=== PATIENT | female | born 1975 | race Caucasian/White ===

== ENCOUNTER 2017-10-30 15:33 | Observation (INO) ==
--- NOTE | 2017-10-30 16:28 | Emergency Department Note ---
Disposition Clinical Impression: Vaginal bleeding Anemia Qualifiers: Anemia type: unspecified type Qualified Code(s): D64.9 - Anemia, unspecified Disposition: Still a Patient Condition: Good Instructions: Anemia (ED) Reasons to Return/Additional Instructions: Follow-up with MUSIC THERAPY SPECIALIST as scheduled on November 09. Return sooner to the ER for any new or worsening symptoms such as worsening bleeding, fatigue, shortness of breath. Referrals: Abrahma Pelletier DO [Primary Care Provider] - Forms: ED Satisfaction Letter Time of Disposition: 18:43 Recheck wound or abnormal lab - General Chief Complaint: ED Recheck/Abnormal Lab/Rx Stated Complaint: abnormal lab Time Seen by Provider: 10/30/17 16:07 Source: patient Mode of arrival: ambulatory Limitations: no limitations Nursing Notes Reviewed: Yes Vital Signs Reviewed: Yes - History of Present Illness HPI Narrative: Patient is a 42-year-old female with past medical history of diabetes, hirsutism , blood clots of the lower extremities and currently on Eliquis. She presents today due to vaginal bleeding, concern for low hemoglobin level. She states that she has had significant vaginal bleeding over the past 2 weeks, has went to a total of 7 packages of pads. She states the bleeding was very heavy the first week and a half and has now slowed down to about 2 pads per day. She followed up with her MUSIC THERAPY SPECIALIST yesterday, Dr. Martinez, who evaluated her for further vaginal bleeding. He plans to do an endometrial biopsy on November 09. Patient was not placed on any hormone therapy. The patient herself says that she has been very fatigued, short of breath when exerting herself. She denies any other fevers, chest pain, abdominal pain, diarrhea, dysuria, hematuria. She denies any history of anemia. She states that she had her blood level drawn today and that it was low and she was told to come to the ER. - Related Data Home Medications Medication Instructions Recorded Confirmed Albuterol Sulfate [Proair Hfa] 2 puff IH Q6H 02/01/17 10/28/17 Aspirin Enteric Coated [Aspirin EC] 81 mg PO DAILY 02/01/17 10/28/17 Losartan Potassium [Cozaar] 100 mg PO DAILY 02/01/17 10/28/17 Pantoprazole Sodium [Protonix] 40 mg PO BID 02/01/17 10/28/17 Albuterol Neb [Proventil Neb] 2.5 mg IH TID 07/09/17 10/28/17 Beclomethasone Diprop 80mcg [Qvar 2 puff IH BID 07/09/17 10/28/17 80 mcg] Calcium Carb, Citrate/Vit D3 1 tab PO DAILY 07/09/17 10/28/17 [Calcium + D3 ER Tablet] Furosemide [Lasix] 20 mg PO DAILY 07/09/17 10/28/17 Previous Rx's Medication Instructions Recorded Ferrous Sulfate [Iron] 325 mg PO BID #60 tablet 08/12/17 Apixaban [Eliquis] 5 mg PO BID #60 tablet 10/28/17 Allergies Allergy/AdvReac Type Severity Reaction Status Date / Time Amoxicillin Allergy Mild swelling Verified 08/10/17 10:31 naproxen Allergy Mild cold sweats Verified 08/10/17 10:31 orphenadrine Allergy Mild severe Verified 08/10/17 10:31 headache Oxycodone [From Percocet] Allergy Mild Hives Verified 08/10/17 10:31 ranitidine Allergy Mild GI bleeding Verified 08/10/17 10:31 sertraline [From Zoloft] Allergy Mild rash, Verified 08/10/17 10:31 sweating codeine Allergy Hives Verified 08/10/17 10:31 hydrocodone Allergy Hives Verified 08/10/17 10:31 Sulfa (Sulfonamide Allergy Hives Verified 08/10/17 10:31 Antibiotics) All systems ED: reviewed and negative except as stated. Constitutional: Denies: fever Cardiovascular: Denies: chest pain Respiratory: Denies: cough, dyspnea, wheezes Gastrointestinal: Denies: abdominal pain, nausea, vomiting Past Medical History - Past Medical History Attestation: Yes The following information was validated with the patient. Source: patient Medical history: Reports: asthma, diabetes, hypertension Surgical history: Reports: cholecystectomy, orthopedic, other, other Psychiatric history: Reports: no psych history MUSIC THERAPY SPECIALIST history: Reports: no MUSIC THERAPY SPECIALIST history - Social History Smoking Status: Never smoker Smokeless Tobacco Status: No Alcohol use: Reports: none Drug use: Reports: none Physical Exam - General Limitations: no limitations General appearance: alert, in no apparent distress - Head Head exam: atraumatic, normocephalic, normal inspection - Eye Eye exam: Present: PERRL, EOMI, other (Conjunctival pallor) - ENT ENT exam: normal exam, normal oropharynx, mucous membranes moist - Neck Neck exam: Present: normal inspection, full ROM, trachea midline - Chest Chest inspection: Present: normal inspection, symmetric chest wall rise - Respiratory Respiratory exam: Present: normal lung sounds bilaterally - Cardiovascular Cardiovascular exam: Present: normal rhythm, tachycardia, normal heart sounds - Abdominal Exam Abdominal exam: Present: soft, Non-Tender. Absent: tenderness, distention, guarding, rebound, rigidity - Female External Exam: Present: pt deferred Speculum Exam: Present: Pt Deferred Bimanual Exam: Present: Pt Deferred - Extremities Exam Extremities exam: Present: normal inspection, full ROM. Absent: tenderness, pedal edema - Neurological Exam Neurological exam: Present: alert, oriented X3 - Psychiatric Psychiatric exam: Present: normal affect, normal mood - Skin Skin exam: Present: warm, dry, intact, pallor. Absent: cyanosis Course Vital Signs Temperature 98.2 F 10/30/17 15:37 Pulse Rate 106 10/30/17 15:37 Respiratory Rate 18 10/30/17 15:37 Blood Pressure 135/84 10/30/17 15:37 O2 Sat by Pulse Oximetry 98 10/30/17 15:37 Temperature 98.8 F 10/30/17 18:10 Pulse Rate 89 10/30/17 18:10 Respiratory Rate 18 10/30/17 18:10 Blood Pressure 116/67 10/30/17 18:10 O2 Sat by Pulse Oximetry 98 10/30/17 18:10 Oxygen Delivery Oxygen Delivery Room Air Recheck wound or abnormal lab - MDM Narrative Medical decision making narrative: Patient was tachycardic on presentation, otherwise blood pressure stable. Vaginal bleeding has slowed down to about 2 pads a day. Should he has established follow-up with endometrial biopsy on November 09. I called and talked with MUSIC THERAPY SPECIALIST equipment operation instructor, Fidelia Concepcion, she states that she is familiar with the patient and the patient was seen yesterday. She did not have any other recommendations on any other intervention such as hormone therapy. She states that patient was told to discuss her Eliquis with primary care physician and possibly stopping or switching medication due to vaginal bleeding. She did confirm the patient has follow-up endometrial biopsy. She did not feel that patient needs to be seen by MUSIC THERAPY SPECIALIST at this time. Repeat hemoglobin here less than 7. Patient will be ordered to titrate blood cell and transfuse. Patient will be observed here in the ER and then likely sent home after transfusion to follow up with OBGYN as scheduled. Will sign out to Dr. Monterroso and Dr. Pennington for further care. - Medical Records Medical records reviewed: Yes I reviewed the patient's medical records. - Lab Data Lab results reviewed: Yes I reviewed the patient's lab results. Result diagrams: 10/30/17 16:41 Lab Results 10/30/17 10/30/17 10/30/17 Range/Units 16:41 16:41 16:41 WBC 8.5 (4.3-11.1) K/mcL RBC 2.35 L (3.82-4.97) M/mcL Hgb 6.3 L (11.5-15.4) g/dL Hct 19.9 L (35.3-44.9) % MCV 84.7 (83.0-100.0) fL MCH 26.8 L (28.0-33.3) pg MCHC 31.7 (31.6-35.5) g/dL RDW 16.4 H (11.5-14.5) % Plt Count 195 (140-400) K/mcL MPV 10.1 (9.4-12.4) fL Serum , Qual Negative (Negative) Blood Type O POSITIVE Antibody Screen NEGATIVE Crossmatch See Detail S.B.A.R. - S.B.A.R. Situation: Demographics, MOA Background: Presenting Complaint, Relevant PMH, Meds, & Allergies Assessment: Vital Signs, Course and respsone to treatment, Exam Concerns, Patient/Family Expectation, Pertinant Lab Results Recommendation: Barrier(s) to disposition, Recommendation based on pending studies, treatments, or consults S.B.A.R. Report Given to: Dr. Pennington
[2017-10-30 16:53] LABS: Hematocrit 19.9 % (35.3-44.9); Hemoglobin 6.3 g/dL (11.5-15.4); Mean Corpuscular HGB Conc 31.7 g/dL (31.6-35.5); Mean Corpuscular Hemoglobin 26.8 pg (28.0-33.3); Mean Corpuscular Volume 84.7 fL (83.0-100.0); Mean Platelet Volume 10.1 fL (9.4-12.4); Platelet Count 195 K/mcL (140-400); Red Blood Count 2.35 M/mcL (3.82-4.97); Red Cell Distribution Width 16.4 % (11.5-14.5)
--- NOTE | 2017-10-30 17:23 | Emergency Department Note ---
Disposition Clinical Impression: Anemia, Vaginal bleeding Disposition: Admitted As Inpatient Condition: Good Referrals: Abraham Pelletier DO [Primary Care Provider] - Forms: ED Satisfaction Letter General Adult HPI - General Chief complaint: ED Recheck/Abnormal Lab/Rx Stated complaint: abnormal lab Time Seen by Provider: 10/30/17 16:07 Source: patient Mode of arrival: ambulatory Limitations: no limitations - History of Present Illness Pain Scale: 0 - Related Data Home Medications Medication Instructions Recorded Confirmed Albuterol Sulfate [Proair Hfa] 2 puff IH Q6H 02/01/17 10/28/17 Aspirin Enteric Coated [Aspirin EC] 81 mg PO DAILY 02/01/17 10/28/17 Losartan Potassium [Cozaar] 100 mg PO DAILY 02/01/17 10/28/17 Pantoprazole Sodium [Protonix] 40 mg PO BID 02/01/17 10/28/17 Albuterol Neb [Proventil Neb] 2.5 mg IH TID 07/09/17 10/28/17 Beclomethasone Diprop 80mcg [Qvar 2 puff IH BID 07/09/17 10/28/17 80 mcg] Calcium Carb, Citrate/Vit D3 1 tab PO DAILY 07/09/17 10/28/17 [Calcium + D3 ER Tablet] Furosemide [Lasix] 20 mg PO DAILY 07/09/17 10/28/17 Previous Rx's Medication Instructions Recorded Ferrous Sulfate [Iron] 325 mg PO BID #60 tablet 08/12/17 Apixaban [Eliquis] 5 mg PO BID #60 tablet 10/28/17 Allergies Allergy/AdvReac Type Severity Reaction Status Date / Time Amoxicillin Allergy Mild swelling Verified 08/10/17 10:31 naproxen Allergy Mild cold sweats Verified 08/10/17 10:31 orphenadrine Allergy Mild severe Verified 08/10/17 10:31 headache Oxycodone [From Percocet] Allergy Mild Hives Verified 08/10/17 10:31 ranitidine Allergy Mild GI bleeding Verified 08/10/17 10:31 sertraline [From Zoloft] Allergy Mild rash, Verified 08/10/17 10:31 sweating codeine Allergy Hives Verified 08/10/17 10:31 hydrocodone Allergy Hives Verified 08/10/17 10:31 Sulfa (Sulfonamide Allergy Hives Verified 08/10/17 10:31 Antibiotics) Past Medical History - Past Medical History Medical history: Reports: asthma, diabetes, hypertension Surgical history: Reports: cholecystectomy, orthopedic, other, other Psychiatric history: Reports: no psych history CONTROLLER REPAIRER AND TESTER history: Reports: no CONTROLLER REPAIRER AND TESTER history - Social History Smoking Status: Never smoker Smokeless Tobacco Status: No Alcohol use: Reports: none Drug use: Reports: none Physical Exam - General Limitations: no limitations General appearance: alert, in no apparent distress Course Vital Signs Temperature 98.2 F 10/30/17 15:37 Pulse Rate 106 10/30/17 15:37 Respiratory Rate 18 10/30/17 15:37 Blood Pressure 135/84 10/30/17 15:37 O2 Sat by Pulse Oximetry 98 10/30/17 15:37 Temperature 98.2 F 10/30/17 16:05 Pulse Rate 106 10/30/17 16:05 Respiratory Rate 18 10/30/17 16:05 Blood Pressure 135/84 10/30/17 16:05 O2 Sat by Pulse Oximetry 98 10/30/17 16:05 Oxygen Delivery Oxygen Delivery Room Air Medical Decision Making - Lab Data Result diagrams: 10/30/17 16:41 Lab Results 10/30/17 Range/Units 16:41 WBC 8.5 (4.3-11.1) K/mcL RBC 2.35 L (3.82-4.97) M/mcL Hgb 6.3 L (11.5-15.4) g/dL Hct 19.9 L (35.3-44.9) % MCV 84.7 (83.0-100.0) fL MCH 26.8 L (28.0-33.3) pg MCHC 31.7 (31.6-35.5) g/dL RDW 16.4 H (11.5-14.5) % Plt Count 195 (140-400) K/mcL MPV 10.1 (9.4-12.4) fL Attestation Statement - Attestation Attestation: I examined this patient and my medical decision-making was reviewed with the VISUAL MERCHANDISING MANAGER/PA/Advanced Practice Nurse/Resident Physician. I agree with the documented findings, disposition and treatment plan as described except to the extent set forth below. The patient presents with vaginal bleeding which has been going on for the last week and she has a low hemoglobin and she does have a pale appearance. She is here with her mother. The patient is not sexually active and does not have any children. She did have a ultrasound by gynecology yesterday and they are negative do a biopsy on November 09 and his general from the office. She will be transfused 2 units here and be sent home. She currently is bleeding 2 pads per day so with her continued use of iron this should be adequate to improve the hemoglobin level and to prevent any problems but if her bleeding increases again she should return or call her beekeeper and the patient is bright and alert and except for being pale is well in appearance and demeanor .
[2017-10-30] MEDS ORDERED: 0.9 % Sodium Chloride 250 ML ONE (17:48)
[2017-10-30 19:54] LABS: BUN/Creatinine Ratio 11 (6-26); Blood Urea Nitrogen 11 mg/dL (6-20); Calcium 8.8 mg/dL (8.6-10.3); Carbon Dioxide 27 mEq/L (23-29); Chloride 102 mEq/L (98-107); Glucose 114 mg/dL (70-105); Osmolality,Calculated 288 (280-300); Potassium 3.2 mEq/L (3.5-5.1); Sodium 139 mEq/L (136-145); eGFR For Non-African Americans > 60 (> 60)
[2017-10-30 19:56] LABS: Troponin I < 0.03 ng/mL (< 0.04)
[2017-10-30] MEDS ORDERED: Isovue-370 500 ML INFUS..BTL IV ONE (20:36)
--- NOTE | 2017-10-30 21:52 | Emergency Department Note ---
Disposition Clinical Impression: Anemia, Vaginal bleeding Disposition: Admitted As Inpatient Condition: Good Recheck wound or abnormal lab - General Chief Complaint: ED Recheck/Abnormal Lab/Rx Stated Complaint: abnormal lab Time Seen by Provider: 10/30/17 16:07 Source: patient Mode of arrival: ambulatory Limitations: no limitations - Related Data Home Medications Medication Instructions Recorded Confirmed Albuterol Sulfate [Proair Hfa] 2 puff IH Q6H 02/01/17 10/30/17 Aspirin Enteric Coated [Aspirin EC] 81 mg PO DAILY 02/01/17 10/30/17 Losartan Potassium [Cozaar] 100 mg PO DAILY 02/01/17 10/30/17 Pantoprazole Sodium [Protonix] 40 mg PO BID 02/01/17 10/30/17 Albuterol Neb [Proventil Neb] 2.5 mg IH TID 07/09/17 10/30/17 Beclomethasone Diprop 80mcg [Qvar 2 puff IH BID 07/09/17 10/30/17 80 mcg] Calcium Carb, Citrate/Vit D3 1 tab PO DAILY 07/09/17 10/30/17 [Calcium + D3 ER Tablet] Furosemide [Lasix] 20 mg PO DAILY 07/09/17 10/30/17 Previous Rx's Medication Instructions Recorded Ferrous Sulfate [Iron] 325 mg PO BID #60 tablet 08/12/17 Apixaban [Eliquis] 5 mg PO BID #60 tablet 10/28/17 Allergies Allergy/AdvReac Type Severity Reaction Status Date / Time Amoxicillin Allergy Mild swelling Verified 08/10/17 10:31 naproxen Allergy Mild cold sweats Verified 08/10/17 10:31 orphenadrine Allergy Mild severe Verified 08/10/17 10:31 headache Oxycodone [From Percocet] Allergy Mild Hives Verified 08/10/17 10:31 ranitidine Allergy Mild GI bleeding Verified 08/10/17 10:31 sertraline [From Zoloft] Allergy Mild rash, Verified 08/10/17 10:31 sweating codeine Allergy Hives Verified 08/10/17 10:31 hydrocodone Allergy Hives Verified 08/10/17 10:31 Sulfa (Sulfonamide Allergy Hives Verified 08/10/17 10:31 Antibiotics) Constitutional: Denies: fever Cardiovascular: Denies: chest pain Respiratory: Denies: cough, dyspnea, wheezes Gastrointestinal: Denies: abdominal pain, nausea, vomiting Past Medical History - Past Medical History Medical history: Reports: asthma, diabetes, hypertension Surgical history: Reports: cholecystectomy, orthopedic, other, other Psychiatric history: Reports: no psych history [facility] history: Reports: no [facility] history - Social History Smoking Status: Never smoker Smokeless Tobacco Status: No Alcohol use: Reports: none Drug use: Reports: none Physical Exam - General Limitations: no limitations General appearance: alert, in no apparent distress Course - Reevaluation(s) Reevaluation #1: Patient signed out from the daytime team. Patient presenting with anemia. Is on Eliquis for bilateral PEs. Has been having vaginal bleeding. Had an outpatient [facility] ultrasound and they recommended endometrial biopsy as an outpatient. She has had symptomatic anemia and was being transfused 2 units of blood in the ED. Signout was given to us and recommended stopping Eliquis. However, after reviewing her CTs she does have bilateral PEs diagnosed on the seventh of this month. I do not think that stopping her anticoagulation for vaginal bleeding outweighs the risk is her eventually developing worsening PEs. Please given her a unit of blood and a second unit is hanging. We will admit to the hospitalist service for further anticoagulation. Patient would benefit from Lovenox or possibly bridging to Coumadin but will defer to the hospitalist service for their choice. Consulted with [facility] and they stated and anecdotally that they do seem more vaginal bleeding with the noacs and would recommend another anticoagulant, but could not make any formal recommendations. CT of the abdomen and pelvis was negative for acute abnormality. Time: 21:50 Vital Signs Temperature 98.2 F 10/30/17 15:37 Pulse Rate 106 10/30/17 15:37 Respiratory Rate 18 10/30/17 15:37 Blood Pressure 135/84 10/30/17 15:37 O2 Sat by Pulse Oximetry 98 10/30/17 15:37 Temperature 98.2 F 10/31/17 03:49 Pulse Rate 88 10/31/17 03:49 Respiratory Rate 15 10/31/17 03:49 Blood Pressure 159/83 10/31/17 03:49 O2 Sat by Pulse Oximetry 98 10/31/17 03:49 Oxygen Delivery Oxygen Delivery Room Air Recheck wound or abnormal lab - Lab Data Result diagrams: 10/30/17 16:41 10/30/17 19:17 Lab Results 10/30/17 10/30/17 10/30/17 Range/Units 16:41 16:41 16:41 WBC 8.5 (4.3-11.1) K/mcL RBC 2.35 L (3.82-4.97) M/mcL Hgb 6.3 L (11.5-15.4) g/dL Hct 19.9 L (35.3-44.9) % MCV 84.7 (83.0-100.0) fL MCH 26.8 L (28.0-33.3) pg MCHC 31.7 (31.6-35.5) g/dL RDW 16.4 H (11.5-14.5) % Plt Count 195 (140-400) K/mcL MPV 10.1 (9.4-12.4) fL Sodium (136-145) mEq/L Potassium (3.5-5.1) mEq/L Chloride (98-107) mEq/L Carbon Dioxide (23-29) mEq/L BUN (6-20) mg/dL Creatinine (0.60-1.20) mg/dL Est GFR ( Amer) (> 60) Est GFR (Non-Af Amer) (> 60) BUN/Creatinine Ratio (6-26) Glucose (70-105) mg/dL Calculated Osmolality (280-300) Calcium (8.6-10.3) mg/dL Troponin I (< 0.04) ng/mL B-Natriuretic Peptide (Less than 100) pg/mL Serum , Qual Negative (Negative) Blood Type O POSITIVE Antibody Screen NEGATIVE Crossmatch See Detail 10/30/17 10/30/17 Range/Units 16:41 19:17 WBC (4.3-11.1) K/mcL RBC (3.82-4.97) M/mcL Hgb (11.5-15.4) g/dL Hct (35.3-44.9) % MCV (83.0-100.0) fL MCH (28.0-33.3) pg MCHC (31.6-35.5) g/dL RDW (11.5-14.5) % Plt Count (140-400) K/mcL MPV (9.4-12.4) fL Sodium 139 (136-145) mEq/L Potassium 3.2 L (3.5-5.1) mEq/L Chloride 102 (98-107) mEq/L Carbon Dioxide 27 (23-29) mEq/L BUN 11 (6-20) mg/dL Creatinine 0.98 (0.60-1.20) mg/dL Est GFR ( Amer) > 60 (> 60) Est GFR (Non-Af Amer) > 60 (> 60) BUN/Creatinine Ratio 11 (6-26) Glucose 114 H (70-105) mg/dL Calculated Osmolality 288 (280-300) Calcium 8.8 (8.6-10.3) mg/dL Troponin I < 0.03 (< 0.04) ng/mL B-Natriuretic Peptide 21 (Less than 100) pg/mL Serum , Qual (Negative) Blood Type Antibody Screen Crossmatch Attestation Statement - Attestation Attestation: I examined this patient and my medical decision-making was reviewed with the Resident Physician. I agree with the documented findings, disposition and treatment plan as described except to the extent set forth below. Findings consistent with vaginal hemorrhage in the setting of normal anticoagulation use. Patient has a pulmonary embolism as defined by CAT scan on 10/07. I would at this point proceed with admission for further evaluation of known pulmonary embolism in the setting of anemia which required blood transfusion. I would be concerned about discharging this patient given the need for ongoing anticoagulation use in the setting of hemorrhage. The patient be admitted after transfusion of 2 units of packed red blood cells. She is stable at the time of admission.
--- NOTE | 2017-10-31 00:11 | Internal Med History&Physical ---
Date of Encounter: 10/31/17 Time of Encounter: 00:11 Internal Medicine - H&P: HPI Chief complaint: Vaginal bleeding Admitted From: Home History of present illness: Ms. Nuñez is a 42 year old female with a past medical history of coagulopathy, asthma, hypertension, and morbid obesity who was recently started on Eliquis for bilateral pulmonary embolism on 10/07/17 that presented complaining of vaginal bleeding. Patient reports her hydraulic lift operator Dr. Kenneth Franco told her to go to the ER due to significant anemia hemoglobin level 6.1 on labs performed 10/28/17. Patient reports using up 7 packs of large pads during the past few days. Patient was evaluated by [employer] Dr. Martinez on 10/29/17 who recommended performing an endometrial biopsy prior to inserting an IUD to control abnormal uterine bleeding. Patient reports tachycardia and right leg edema which has worsened since her recent pulmonary embolism diagnosis. The patient is not sexually active and does not have any children. She denies associated fever, chills, chest pain, shortness of breath, abdominal pain, nausea, vomiting, diarrhea, constipation, dysuria, hematuria, or recent sick contacts. Past Med Surg Social Fam HX - Past Medical History Medical history: asthma, DVT, hypertension, pulmonary embolus Additional medical history: mitral valve prolapse, factor 5 Psychiatric history: no psych history - Past Surgical History Surgical History: cholecystectomy, orthopedic, other, other Additional surgical history: Bone Spurs left foot - Social History Smoking Status: Never smoker Smokeless Tobacco Status: No Alcohol use: none Drug use: none Activity Level: Independent ambulation - Family History Father Living Status: Hx Family Respiratory Disorders: Yes Hx Family Cancer: Yes (Lung) Hx Family Endocrine Disorder: Yes Mother Living Status: Hx Family Cardiac Disorders: Yes Internal Medicine - H&P: Meds Albuterol Sulfate [Proair Hfa] 2 puff IH Q6H 02/01/17 [History] Aspirin Enteric Coated [Aspirin EC] 81 mg PO DAILY 02/01/17 [History] Losartan Potassium [Cozaar] 100 mg PO DAILY 02/01/17 [History] Pantoprazole Sodium [Protonix] 40 mg PO BID 02/01/17 [History] Albuterol Neb [Proventil Neb] 2.5 mg IH TID 07/09/17 [History] Beclomethasone Diprop 80mcg [Qvar 80 mcg] 2 puff IH BID 07/09/17 [History] Calcium Carb, Citrate/Vit D3 [Calcium + D3 ER Tablet] 1 tab PO DAILY 07/09/17 [ History] RX: Furosemide [Lasix] 20 mg PO DAILY 07/09/17 [History] RX: Ferrous Sulfate [Iron] 325 mg PO BID #60 tablet 08/12/17 [Rx] Apixaban [Eliquis] 5 mg PO BID #60 tablet 10/28/17 [Rx] 3 Allergy/AdvReac Type Severity Reaction Status Date / Time Amoxicillin Allergy Mild swelling Verified 08/10/17 10:31 naproxen Allergy Mild cold sweats Verified 08/10/17 10:31 orphenadrine Allergy Mild severe Verified 08/10/17 10:31 headache Oxycodone [From Percocet] Allergy Mild Hives Verified 08/10/17 10:31 ranitidine Allergy Mild GI bleeding Verified 08/10/17 10:31 sertraline [From Zoloft] Allergy Mild rash, Verified 08/10/17 10:31 sweating codeine Allergy Hives Verified 08/10/17 10:31 hydrocodone Allergy Hives Verified 08/10/17 10:31 Sulfa (Sulfonamide Allergy Hives Verified 08/10/17 10:31 Antibiotics) All Systems PM: A 10-system review of systems was performed and is negative for pertinent findings except as documented above in the HPI. - Constitutional Constitutional: fatigue, no anorexia, no chills, no fever(s), no lethargy, no weakness, no weight gain, no weight loss - EENT Eyes: no blurry vision, no diplopia Nose, mouth and throat: no sinus pain, no sore throat - Cardiovascular Cardiovascular ROS IM: palpitations, no chest pain, no dyspnea, no syncope - Respiratory Respiratory: dyspnea on exertion, no cough - Gastrointestinal Gastrointestinal: cramping, no abdominal pain, no diarrhea, no heartburn, no melena, no nausea, no vomiting - Genitourinary Genitourinary: abnormal menses, abnormal vaginal bleeding, no dysuria, no hematuria, no urinary frequency, no urinary urgency Menstruation: period heavy - Musculoskeletal Musculoskeletal ROS IM: no arthralgias, no back pain, no numbness, no tingling - Integumentary Integumentary IM: no erythema, no new lesions, no rash - Neurological Neurological ROS: dizziness, no confusion, no frequent falls, no numbness, no tingling, no weakness - Psychiatric Psychiatric: no anxiety, no depression - Endocrine Endocrine IM: fatigue, no polydipsia, no polyphagia, no polyuria - Hematologic/Lymphatic Hematologic/Lymphatic: easy bleeding, no easy bruising - Constitutional Vitals: Temp Pulse Resp BP Pulse Ox 98.8 F 94 16 121/74 99 10/30/17 18:10 10/30/17 22:33 10/30/17 22:33 10/30/17 22:33 10/30/17 22:33 General appearance: Present: cooperative, A&O X 3, morbidly obese, pleasant, answers questions appropriately - Head Head exam: Present: atraumatic, normocephalic - Eye Eye exam: Present: EOMI, conjuntiva pink, sclera anicteric - ENT ENT exam: Present: mucous membranes dry, normal oropharynx - Neck Neck exam general surgery: Present: supple, trachea midline. Absent: lymphadenopathy - Respiratory Respiratory exam: Present: CTAB. Absent: accessory muscle use, rales, rhonchi, wheezes - Cardiovascular Cardiovascular exam: Present: RRR, +S1, +S2. Absent: diastolic murmur, gallop, rubs, systolic murmur - GI/Abdominal GI/Abdominal exam: Present: normal bowel sounds, soft, no peritoneal signs. Absent: distended, guarding, tenderness - Extremities Exam Extremities exam: Present: calf tenderness (Right greater than left), normal capillary refill, pedal edema (1+), warm, radial pulses palpable and symmetrical. Absent: cyanotic - Back Exam Back exam: Present: normal inspection. Absent: paraspinal tenderness, tenderness - Neurological Exam Neurological exam: Present: alert, CN II-XII intact, oriented X3, no focal deficits. Absent: pronater drift, facial droop, speech deficit - Psychiatric Psychiatric exam: Present: normal affect, normal mood - Skin Skin exam: Present: dry, intact, pallor, warm Internal Med - H&P Results - Labs CBC & Chem 7: 10/30/17 16:41 10/30/17 19:17 - Pulse Oximetry Interpretation Digit-Finger O2 Sat by Pulse Oximetry: 99 (On room air) - Impressions ITS Impressions Abdomen/Pelvis CT 10/30/17 20:36 IMPRESSION: No evidence for acute intra-abdominal or intrapelvic pathology. No bowel obstruction or inflammation. No evidence for nephrolithiasis or urinary obstruction. Normal appendix. 3.5 cm right adnexal cyst. No further follow-up necessary for this finding. D/ / Patric Bowles MD / Patric Bowles MD Interpreting Provider: Patric Bowles MD - Assessment and plan (1) Anemia Current Visit: Yes Status: Acute Assessment and plan: Patient reports her hydraulic lift operator Dr. Kenneth Franco told her to go to the ER due to significant anemia hemoglobin level 6.1 on labs performed 10/28/17. Patient reports using up 7 packs of large pads during the past few days. Hemoglobin level 6.7 Type and screen performed 2 units PRBCs transfused Two large bore IVs in place Monitor serial H&H Continue PPI Nothing by mouth after midnight Continue close monitoring Qualifiers: Anemia type: iron deficiency Iron deficiency anemia type: chronic blood loss Qualified Code(s): D50.0 - Iron deficiency anemia secondary to blood loss (chronic) (2) Vaginal bleeding Current Visit: Yes Status: Acute Assessment and plan: Hemoglobin level 6.1 on labs performed 10/28/17. Patient reports using up 7 packs of large pads during the past few days. Patient was evaluated by [employer] Dr. Martinez on 10/29/17 who recommended performing an endometrial biopsy 11/09/17 prior to inserting an IUD to control abnormal uterine bleeding. CT abdomen pelvis revealed no evidence for acute intra-abdominal or intrapelvic pathology. [employer] noted increased vaginal bleeding on NOACs compared to other anticoagulants Continue close monitoring (3) Pulmonary embolism Current Visit: Yes Status: Chronic Assessment and plan: CT chest 10/07/17 revealed bilateral pulmonary embolisms with concerns of saddle pulmonary embolism Last echo was performed 12/17/15 revealing LVEF 60%, no pulmonary hypertension Hypercoagulable with bilateral PE and h/o DVTs. Patient was started on Eliquis at [facility]. Hold Eliquis Consider starting Lovenox and bridging to warfarin Qualifiers: Pulmonary embolism type: other Chronicity: chronic Acute cor pulmonale presence: without acute cor pulmonale Qualified Code(s): I27.82 - Chronic pulmonary embolism (4) Hypertension Current Visit: Yes Status: Chronic Assessment and plan: Continue home meds Qualifiers: Hypertension type: essential hypertension Qualified Code(s): I10 - Essential (primary) hypertension (5) Morbid obesity with BMI of 45.0-49.9, adult Current Visit: Yes Status: Acute Assessment and plan: Lifestyle modification (6) Hypokalemia Current Visit: Yes Status: Acute Assessment and plan: Supplement K Mag level pending Continue monitoring (7) DVT prophylaxis Current Visit: Yes Status: Acute Assessment and plan: EPCDs - Time Spent With Patient Total time spent is greater than 50% in coordination of care (as documented) at patient's floor/unit and/or counseling patient:
[2017-10-31] MEDS ORDERED: 0.9 % Sodium Chloride 500 ML ONE (00:19)
[2017-10-31] MEDS ORDERED: Ondansetron 4 MG/2 ML VIAL IVP PRN (01:06)
[2017-10-31] MEDS ORDERED: Acetaminophen 325 MG TABLET PO PRN (01:06)
[2017-10-31] MEDS ORDERED: Naloxone 0.4 MG/ML INJ IVP PRN (01:06)
[2017-10-31] MEDS: 0.9 % Sodium Chloride 1,000 ML IVC SCH (01:52)
[2017-10-31] MEDS ORDERED: Albuterol 2.5 MG/3 ML NEBULIZER IH SCH (02:00)
[2017-10-31] MEDS ORDERED: Pantoprazole 40 MG VIAL IVP SCH (06:00)
[2017-10-31 06:43] LABS: Basophils % 0.4 %; Eosinophils # 0.1 K/mcL (0.0-0.6); Eosinophils % 1.1 %; Hematocrit 23.5 % (35.3-44.9); Hemoglobin 7.5 g/dL (11.5-15.4); Immature Granulocytes % 1.7 % (0-4); Lymphocytes # 1.9 K/mcL (0.6-4.6); Lymphocytes % 23.6 %; Mean Corpuscular HGB Conc 31.9 g/dL (31.6-35.5); Mean Corpuscular Hemoglobin 27.6 pg (28.0-33.3); Mean Corpuscular Volume 86.4 fL (83.0-100.0); Mean Platelet Volume 9.8 fL (9.4-12.4); Monocytes # 0.5 K/mcL (0.0-1.3); Monocytes % 6.5 %; Neutrophils # 5.2 K/mcL (1.6-8.9); Nucleated Red Blood Cells 0.4 /100 WBC (0); Platelet Count 172 K/mcL (140-400); Red Blood Count 2.72 M/mcL (3.82-4.97); Segmented Neutrophils % 66.7 %
[2017-10-31 06:54] LABS: INR 1.3; Prothrombin Time 14.9 Seconds (9.4-12.1)
[2017-10-31 07:09] LABS: Alanine Aminotransferase 7 Units/L (7-52); Albumin 3.4 g/dL (3.5-5.7); Albumin/Globulin Ratio 1.7 (1.1-2.2); Alkaline Phosphatase 59 Units/L (34-104); Aspartate Amino Transferase 11 Units/L (13-39); BUN/Creatinine Ratio 10 (6-26); Bilirubin,Total 1.2 mg/dL (0.3-1.0); Blood Urea Nitrogen 10 mg/dL (6-20); Calcium 8.5 mg/dL (8.6-10.3); Carbon Dioxide 26 mEq/L (23-29); Chloride 106 mEq/L (98-107); Glucose 107 mg/dL (70-105); Osmolality,Calculated 292 (280-300); Potassium 3.6 mEq/L (3.5-5.1); Sodium 141 mEq/L (136-145); Total Protein 5.4 g/dL (6.4-8.9); eGFR For Non-African Americans > 60 (> 60)
[2017-10-31] MEDS: Calcium + D3 PO SCH (08:42)
[2017-10-31 10:30] LABS: Hematocrit 24.3 % (35.3-44.9); Hemoglobin 7.8 g/dL (11.5-15.4)
[2017-10-31] MEDS: Beclomethasone 80mcg MDI IH SCH ×2 (10:48→22:27)
[2017-10-31 11:13] LABS: Bilirubin,Urine Negative (Negative); Blood,Urine Moderate (Negative); Clarity,Urine Clear (Clear); Color,Urine Yellow (Yellow); Glucose,Urine (UA) Normal (Normal); Ketones,Urine Negative (Negative); Leukocyte Esterase,Urine Negative (Negative); Nitrite,Urine Negative (Negative); PH,Urine 6.5 pH Units (5.0-8.0); Protein,Urine Negative (Neg-Trace); Specific Gravity,Urine > 1.030 (1.010-1.025); Urobilinogen,Urine Normal (Normal)
[2017-10-31 11:15] LABS: Bacteria,Urine None Seen per hpf (None-Few); Hyaline Casts,Urine None Seen per lpf (None-Few); Squamous Epithelial Cell,Urine Moderate per lpf (None-Few)
[2017-10-31] MEDS ORDERED: *HR* Heparin 5,000 UNIT/ML VIAL IVP PRN ×2 (11:48)
[2017-10-31] MEDS ORDERED: *HR* Heparin 5,000 UNIT/ML VIAL IVP ONE (11:48)
--- NOTE | 2017-10-31 12:25 | Event Note ---
<Adis Mejia - Last Filed: 10/31/17 14:59> Date of Encounter: 10/31/17 Time of Encounter: 10:30 Ms. Nuñez is a 42F with PMH of Protein C and S deficiency, HTN, and asthma who was recently found to have bilateral PEs on 10/07. At that time she was started on Eliquis. Since then she has experience significant vaginal bleeding, and was found to have a Hgb of 6.1 of 10/28 and was sent to the ER by her welding tester. Outpatient OBGYN recommended performing an outpatient endometrial biopsy and IUD placement to help with abnormal uterine bleeding. ER consult with OBGYN stated anecdotally more vaginal bleeding seems to occur with NOACs and could switch to another anticoagulant, but no formal recommendations. CT abdomen/ pelvis was negative for acute abnormality. 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 No acute or new complaints. States her vaginal bleeding has stopped. States her right lower leg swelling has improved. Denies any chest pain, SOB, increased cough, sputum production, abdominal pain, nausea, or vomiting. Physical Exam: Head: normocephalic and atraumatic Eyes: PERRL, EOMI, sclera anicteric, conjunctiva pink Neck: supple, trachea midline Lungs: CTA bilaterally. no wheezes, rales, or rhonchi. non-labored breathing Heart: RRR +S1 +S2. no murmurs, clicks, or rubs GI: abdomen soft, non-tender, non-distended. normoactive bowel sounds Extremities: warm, radial pulses palpable and symmetrical. +2 pitting edema in right LE. no cyanosis. Negative Guevara's sign bilaterally. no calf tenderness. Neuro: A&Ox3. no focal deficits. no speech abnormality or difficulty Skin: war, dry, intact A/P: Anemia - likely due to blood loss from vaginal bleeding - received 2 units pRBCs overnight - H&H responded appropriately - Pt has known iron deficiency with outpatient heme/onc planning for iron infusions -Continue to monitor Pulmonary Embolism - known from CTA on 10/07 - pt was placed on Eliquis at the time, but D/C'ed for vaginal bleeding - OBGYN noted increased vaginal bleeding on NOACs compaired to other anticoagulants - Started Heparin to Coumadin bridge - Pt noted she has taken Coumadin previously and had to have Lovenox injections simultaneously Hypokalemia - 40mEq of K today - Continue to monitor <ThalSarah cosby - Last Filed: 10/31/17 18:08> Date of Encounter: 10/31/17 I examined this patient and my medical decision-making was reviewed with the Resident Physician Dr. Mejia. I agree with the documented findings, disposition and treatment plan as described except to the extent set forth below. Ms. Nuñez with known PMH of Protein C and S def, recently dx with PE on Eliquis for anticoagulation admitted here with acute blood loss anemia with vaginal bleeding. She also c.o Rt leg pain. pt denied active vaginal bleeding now. Gen: A, A, O x 3 Chest: Diminished BS b/l , no crackles Heart: S1S2+ RRR a/p 1. Acute blood anemia due to vaginal bleeding improving cont close monitoring transfuse as needed held eliquis on Heparin gtt 2. recent PE started on coumadin bridging with heparin gtt 3. Rt leg pain will check venous doppler
[2017-10-31] MEDS: Heparin 25,000 UNIT/500 ML D5W 25,000 UNIT/500 ML BAG IVC SCH (12:40)
[2017-10-31] MEDS ORDERED: Warfarin perPT PO PRN (18:00)
[2017-10-31] MEDS ORDERED: *HR* Warfarin 7.5 MG TABLET PO ONE (18:00)
[2017-10-31 18:27] LABS: Hematocrit 24.4 % (35.3-44.9); Hemoglobin 7.7 g/dL (11.5-15.4); Mean Corpuscular HGB Conc 31.6 g/dL (31.6-35.5); Mean Corpuscular Hemoglobin 27.1 pg (28.0-33.3); Mean Corpuscular Volume 85.9 fL (83.0-100.0); Mean Platelet Volume 10.8 fL (9.4-12.4); Platelet Count 198 K/mcL (140-400); Red Blood Count 2.84 M/mcL (3.82-4.97)
[2017-11-01 03:14] LABS: Hematocrit 24.6 % (35.3-44.9); Hemoglobin 7.7 g/dL (11.5-15.4); Mean Corpuscular HGB Conc 31.3 g/dL (31.6-35.5); Mean Corpuscular Hemoglobin 27.6 pg (28.0-33.3); Mean Corpuscular Volume 88.2 fL (83.0-100.0); Mean Platelet Volume 10.9 fL (9.4-12.4); Platelet Count 172 K/mcL (140-400); Red Blood Count 2.79 M/mcL (3.82-4.97); Red Cell Distribution Width 16.2 % (11.5-14.5)
[2017-11-01 03:24] LABS: INR 1.1
[2017-11-01 03:33] LABS: BUN/Creatinine Ratio 8 (6-26); Blood Urea Nitrogen 8 mg/dL (6-20); Calcium 8.4 mg/dL (8.6-10.3); Carbon Dioxide 25 mEq/L (23-29); Chloride 109 mEq/L (98-107); Glucose 126 mg/dL (70-105); Magnesium 2.3 mg/dL (1.6-2.6); Osmolality,Calculated 292 (280-300); Potassium 3.6 mEq/L (3.5-5.1); Sodium 141 mEq/L (136-145); eGFR For Non-African Americans 59 (> 60)
[2017-11-01 03:34] LABS: % Iron Saturation 8 % (15-50); Iron 29 mcg/dL (50-170); Transferrin 257 mg/dL (203-362)
[2017-11-01] MEDS: Heparin 25,000 UNIT/500 ML D5W 25,000 UNIT/500 ML BAG IVC SCH (04:54)
[2017-11-01] MEDS: Calcium + D3 PO SCH (08:24)
--- NOTE | 2017-11-01 10:26 | Internal Med Progress Note ---
<Adis Mejia - Last Filed: 11/01/17 10:21> Date of Encounter: 11/01/17 Time of Encounter: 10:21 - Assessment and plan (1) Anemia Current Visit: Yes Status: Acute Assessment and plan: Patient reports her magnetic tester Dr. Kenneth Franco told her to go to the ER due to significant anemia hemoglobin level 6.1 on labs performed 10/28/17. Likely due to blood loss from vaginal bleeding, pt reports using 7 packs of large pads in 2 weeks Received 2 units pRBCs on 10/31 H&H responded appropriately and remains stable at 7.7 and 24.6 respectively today Pt has known iron deficiency with outpatient heme/onc planning for iron infusions. Iron studies revealed inadequate iron Ferrous sulfate 325mg BID Continue to monitor Qualifiers: Anemia type: iron deficiency Iron deficiency anemia type: chronic blood loss Qualified Code(s): D50.0 - Iron deficiency anemia secondary to blood loss (chronic) (2) Vaginal bleeding Current Visit: Yes Status: Acute Assessment and plan: Hemoglobin level 6.1 on labs performed 10/28 and 6.3 on admission. Patient reports using 7 packs of large pads in the past 2 weeks. Patient was evaluated by [employer] Dr. Martinez on 10/29 who recommended performing an endometrial biopsy 11/09/17 prior to inserting an IUD to control abnormal uterine bleeding or possible hysterectomy CT abdomen pelvis revealed no evidence for acute intra-abdominal or intrapelvic pathology. [employer] noted increased vaginal bleeding on NOACs compared to other anticoagulants Anemia has improved as noted above. Pt states vaginal bleeding has resumed after a break yesterday. States the bleeding is constant, but significantly less volume Continue close monitoring (3) Pulmonary embolism Current Visit: Yes Status: Chronic Assessment and plan: CTA on 10/07 revealed bilateral PEs with concerns of saddle pulmonary embolism pt was placed on Eliquis at the time, but D/C'ed for vaginal bleeding OBGYN noted increased vaginal bleeding on NOACs compaired to other anticoagulants Initiated heparin to Coumadin bridge yesterday. INR today 1.1 Pt noted she has taken Coumadin previously and had to have Lovenox injections simultaneously. States her sister is able to help her with the Lovenox injections at home. Continue coumadin bridging Plan for Coumadin with Lovenox injections upon discharge, possibly tomorrow Qualifiers: Pulmonary embolism type: other Chronicity: chronic Acute cor pulmonale presence: without acute cor pulmonale Qualified Code(s): I27.82 - Chronic pulmonary embolism (4) Hypertension Current Visit: Yes Status: Chronic Assessment and plan: Normotensive at this time Continue home meds: - Losartan 100 qd Qualifiers: Hypertension type: essential hypertension Qualified Code(s): I10 - Essential (primary) hypertension (5) Morbid obesity with BMI of 45.0-49.9, adult Current Visit: Yes Status: Acute Assessment and plan: Discussed lifestyle modifications (6) DVT prophylaxis Current Visit: Yes Status: Acute Assessment and plan: See above Heparin to Coumadin bridge - Time Spent With Patient Total time spent is greater than 50% in coordination of care (as documented) at patient's floor/unit and/or counseling patient: - Subjective Interval history: Ms. Nuñez is a 42F with PMH of Protein C and S deficiency, HTN, and asthma who was recently found to have bilateral PEs on 10/07. At that time she was started on Eliquis. Since then she has experience significant vaginal bleeding, and was found to have a Hgb of 6.1 of 10/28 and was sent to the ER by her magnetic tester. Outpatient OBGYN recommended performing an outpatient endometrial biopsy and IUD placement to help with abnormal uterine bleeding. ER consult with OBGYN stated anecdotally more vaginal bleeding seems to occur with NOACs and could switch to another anticoagulant, but no formal recommendations. CT abdomen/ pelvis was negative for acute abnormality. LE ultra sound on 10/31 was negative for DVTs. No acute events overnight. Pt stated she feels "fine". No acute or new complaints. States her vaginal bleeding has returned but is light. States her right lower leg swelling has improved. Denies any chest pain, SOB, increased cough, sputum production, abdominal pain, nausea, or vomiting. States she experienced some SOB while walking in the hallways yesterday but it improved once she used her inhaler. - Constitutional Vitals: Temp Pulse Resp BP Pulse Ox 98.0 F 68 16 113/74 99 11/01/17 07:08 11/01/17 07:08 11/01/17 07:08 11/01/17 07:08 11/01/17 07:08 General appearance: Present: cooperative, A&O X 3, morbidly obese, pleasant, answers questions appropriately Exam: Physical Exam: Head: normocephalic and atraumatic Eyes: PERRL, EOMI, sclera anicteric, conjunctiva pink Neck: supple, trachea midline Lungs: CTA bilaterally. no wheezes, rales, or rhonchi. non-labored breathing Heart: RRR +S1 +S2. no murmurs, clicks, or rubs GI: abdomen soft, non-tender, non-distended. normoactive bowel sounds Extremities: warm, radial pulses palpable and symmetrical. +1 pitting edema in right LE. no cyanosis. Negative Guevara's sign bilaterally. no calf tenderness. Neuro: A&Ox3. no focal deficits. no speech abnormality or difficulty Skin: warm, dry, intact Internal Medicine: Result - Labs CBC & Chem 7: 11/01/17 02:24 11/01/17 02:24 Labs: Short CBC 10/31/17 10/31/17 11/01/17 Range/Units 10:07 17:49 02:24 WBC 9.4 8.7 (4.3-11.1) K/mcL Hgb 7.8 L 7.7 L 7.7 L (11.5-15.4) g/dL Hct 24.3 L 24.4 L 24.6 L (35.3-44.9) % Plt Count 198 172 (140-400) K/mcL BMP 11/01/17 02:24 Sodium 141 Potassium 3.6 Chloride 109 H Carbon Dioxide 25 BUN 8 Creatinine 1.02 Glucose 126 H Calcium 8.4 L Urine 10/31/17 Range/Units 10:24 Urine Color Yellow (Yellow) Urine Clarity Clear (Clear) Urine pH 6.5 (5.0-8.0) pH Units Ur Specific Anchor > 1.030 H (1.010-1.025) Urine Protein Negative (Neg-Trace) mg/dL Urine Glucose (UA) Normal (Normal) mg/dL - ABG Interpretation ABG results: PT/INR, D-dimer PT 12.0 Seconds (9.4-12.1) 11/01/17 02:24 Consult Discharge Plan - Plan Referrals: Abraham Pelletier DO [Primary Care Provider] - <Sarah Arreaga - Last Filed: 11/01/17 13:25> Date of Encounter: 11/01/17 - Assessment and plan (1) Anemia Current Visit: Yes Status: Acute Qualifiers: Anemia type: iron deficiency Iron deficiency anemia type: chronic blood loss Qualified Code(s): D50.0 - Iron deficiency anemia secondary to blood loss (chronic) (2) Vaginal bleeding Current Visit: Yes Status: Acute (3) Pulmonary embolism Current Visit: Yes Status: Chronic Qualifiers: Pulmonary embolism type: other Chronicity: chronic Acute cor pulmonale presence: without acute cor pulmonale Qualified Code(s): I27.82 - Chronic pulmonary embolism (4) Hypertension Current Visit: Yes Status: Chronic Qualifiers: Hypertension type: essential hypertension Qualified Code(s): I10 - Essential (primary) hypertension (5) Morbid obesity with BMI of 45.0-49.9, adult Current Visit: Yes Status: Acute (6) DVT prophylaxis Current Visit: Yes Status: Acute - Time Spent With Patient Total time spent is greater than 50% in coordination of care (as documented) at patient's floor/unit and/or counseling patient: - Constitutional Vitals: Temp Pulse Resp BP Pulse Ox 98.0 F 73 16 124/84 99 11/01/17 10:51 11/01/17 10:51 11/01/17 10:51 11/01/17 10:51 11/01/17 10:51 Internal Medicine: Result - Labs CBC & Chem 7: 11/01/17 02:24 11/01/17 02:24 Labs: Short CBC 10/31/17 11/01/17 Range/Units 17:49 02:24 WBC 9.4 8.7 (4.3-11.1) K/mcL Hgb 7.7 L 7.7 L (11.5-15.4) g/dL Hct 24.4 L 24.6 L (35.3-44.9) % Plt Count 198 172 (140-400) K/mcL BMP 11/01/17 02:24 Sodium 141 Potassium 3.6 Chloride 109 H Carbon Dioxide 25 BUN 8 Creatinine 1.02 Glucose 126 H Calcium 8.4 L - ABG Interpretation ABG results: PT/INR, D-dimer PT 12.0 Seconds (9.4-12.1) 11/01/17 02:24 - Attending Attestation I examined this patient and my medical decision-making was reviewed with the Resident Physician Dr. Mejia. I agree with the documented findings, disposition and treatment plan as described except to the extent set forth below. Ms. Nuñez with known PMH of Protein C and S def, recently dx with PE on Eliquis for anticoagulation admitted here with acute blood loss anemia with vaginal bleeding. She also c.o Rt leg pain. pt denied active vaginal bleeding now. Gen: A, A, O x 3 Chest: Diminished BS b/l , no crackles Heart: S1S2+ RRR a/p 1. Acute blood anemia due to vaginal bleeding improving..stable Hb @ 7.7 cont close monitoring transfuse as needed held eliquis on Heparin gtt 2. recent PE started on coumadin bridging with heparin gtt 3. Rt leg pain venous doppler negative for DVT
[2017-11-01] MEDS: Beclomethasone 80mcg MDI IH SCH ×2 (10:43→21:35)
[2017-11-02] MEDS: Heparin 25,000 UNIT/500 ML D5W 25,000 UNIT/500 ML BAG IVC SCH ×3 (01:32→23:46)
[2017-11-02 06:13] LABS: Basophils % 0.4 %; Eosinophils # 0.3 K/mcL (0.0-0.6); Eosinophils % 3.4 %; Hematocrit 23.3 % (35.3-44.9); Hemoglobin 7.3 g/dL (11.5-15.4); Immature Granulocytes % 2.4 % (0-4); Lymphocytes # 2.2 K/mcL (0.6-4.6); Lymphocytes % 27.3 %; Mean Corpuscular HGB Conc 31.3 g/dL (31.6-35.5); Mean Corpuscular Hemoglobin 27.8 pg (28.0-33.3); Mean Corpuscular Volume 88.6 fL (83.0-100.0); Mean Platelet Volume 10.2 fL (9.4-12.4); Monocytes # 0.5 K/mcL (0.0-1.3); Monocytes % 6.1 %; Neutrophils # 4.8 K/mcL (1.6-8.9); Platelet Count 160 K/mcL (140-400); Red Blood Count 2.63 M/mcL (3.82-4.97); Red Cell Distribution Width 16.5 % (11.5-14.5); Segmented Neutrophils % 60.4 %
[2017-11-02 06:20] LABS: INR 1.1; Prothrombin Time 12.6 Seconds (9.4-12.1)
[2017-11-02 06:39] LABS: BUN/Creatinine Ratio 11 (6-26); Blood Urea Nitrogen 10 mg/dL (6-20); Calcium 8.3 mg/dL (8.6-10.3); Carbon Dioxide 25 mEq/L (23-29); Chloride 108 mEq/L (98-107); Glucose 104 mg/dL (70-105); Osmolality,Calculated 289 (280-300); Potassium 3.6 mEq/L (3.5-5.1); Sodium 140 mEq/L (136-145); eGFR For Non-African Americans > 60 (> 60)
[2017-11-02] MEDS: Calcium + D3 PO SCH (08:22)
[2017-11-02] MEDS: Beclomethasone 80mcg MDI IH SCH ×2 (09:00→23:31)
--- NOTE | 2017-11-02 10:28 | Internal Med Progress Note ---
<AmritaEltonJosemanuel W - Last Filed: 11/02/17 16:43> Date of Encounter: 11/02/17 Time of Encounter: 10:24 - Assessment and plan (1) Anemia Current Visit: Yes Status: Acute Assessment and plan: Patient went to ER due to hemoglobin level 6.1 on labs performed 10/28/17. hemoglobin improved to 7.7 but is now 7.3 Likely due to blood loss from vaginal bleeding, pt reports using 7 packs of large pads in 2 weeks Received 2 units pRBCs on 10/31 Hemoglobin is 7.3 today down from 7.7 yesterday Protein C and S deficiency heme consult placed Pt has known iron deficiency with outpatient heme/onc planning for iron infusions. 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 NURSING CENTER TUTOR noted increased vaginal bleeding on NOACs compared to other anticoagulants Anemia has improved as noted above. (3) Pulmonary embolism Current Visit: Yes Status: Chronic Assessment and plan: CTA on 10/07 revealed bilateral PEs with concerns of saddle pulmonary embolism pt was placed on Eliquis at the time, but D/C'ed for vaginal bleeding Initiated heparin to Coumadin bridge 10/31/17. INR today Pt noted she has taken Coumadin previously and had to have Lovenox injections simultaneously. States her sister is able to help her with the Lovenox injections at home. Qualifiers: Pulmonary embolism type: other Chronicity: chronic Acute cor pulmonale presence: without acute cor pulmonale Qualified Code(s): I27.82 - Chronic pulmonary embolism (4) Hypertension Current Visit: Yes Status: Chronic Assessment and plan: Normotensive at this time Continue home meds: - Losartan 100 qd Qualifiers: Hypertension type: essential hypertension Qualified Code(s): I10 - Essential (primary) hypertension (5) DVT prophylaxis Current Visit: Yes Status: Acute Assessment and plan: currently on heparin bridge - Time Spent With Patient 25 - 35 minutes - Subjective Interval history: Ms. Nuñez is a 42F with PMH of Protein C and S deficiency, HTN, and asthma who was recently found to have bilateral PEs on 10/07. She was then placed on eliquis. after she started experiencing vaginal bleeding. Hgb was 6.1 and was sent to the ED by her senior gl accountant on 10/30/17. Received 2 units pRBCs on 10/31 Patient states she is doing better today. She has not had any bleeding from her vagina for over 24 hours. hemoglobin is 7.3 today. Denies lightheadedness. denies SOB or chest pain. no fatigue. denies n/v/d. has constipation last BM was Thursday but states this is normal - Constitutional Vitals: Temp Pulse Resp BP Pulse Ox 98 F 70 16 105/66 98 11/02/17 06:40 11/02/17 06:40 11/02/17 09:00 11/02/17 06:40 11/02/17 09:00 General appearance: Present: cooperative, A&O X 3, morbidly obese, pleasant, answers questions appropriately Internal Medicine: Result - Labs CBC & Chem 7: 11/02/17 05:37 11/02/17 05:37 Labs: Short CBC 11/02/17 Range/Units 05:37 WBC 7.9 (4.3-11.1) K/mcL Hgb 7.3 L (11.5-15.4) g/dL Hct 23.3 L (35.3-44.9) % Plt Count 160 (140-400) K/mcL Neutrophils # 4.8 (1.6-8.9) K/mcL BMP 11/02/17 05:37 Sodium 140 Potassium 3.6 Chloride 108 H Carbon Dioxide 25 BUN 10 Creatinine 0.88 Glucose 104 Calcium 8.3 L - ABG Interpretation ABG results: PT/INR, D-dimer PT 12.6 Seconds (9.4-12.1) H 11/02/17 05:37 Consult Discharge Plan - Plan Referrals: Abraham Pelletier DO [Primary Care Provider] - <Joel Merritt - Last Filed: 11/02/17 22:57> Date of Encounter: 11/02/17 - Constitutional Vitals: Temp Pulse Resp BP Pulse Ox 98.3 F 78 22 113/77 98 11/02/17 21:34 11/02/17 21:34 11/02/17 21:34 11/02/17 21:34 11/02/17 18:43 Internal Medicine: Result - Labs CBC & Chem 7: 11/02/17 16:48 11/02/17 05:37 Labs: Short CBC 11/02/17 11/02/17 Range/Units 05:37 16:48 WBC 7.9 (4.3-11.1) K/mcL Hgb 7.3 L 8.0 L (11.5-15.4) g/dL Hct 23.3 L 26.0 L (35.3-44.9) % Plt Count 160 (140-400) K/mcL Neutrophils # 4.8 (1.6-8.9) K/mcL BMP 11/02/17 05:37 Sodium 140 Potassium 3.6 Chloride 108 H Carbon Dioxide 25 BUN 10 Creatinine 0.88 Glucose 104 Calcium 8.3 L - ABG Interpretation ABG results: PT/INR, D-dimer PT 12.6 Seconds (9.4-12.1) H 11/02/17 05:37 - Attending Attestation I examined this patient and my medical decision-making was reviewed with the Resident Physician. I agree with the documented findings, disposition and treatment plan as described except to the extent set forth below. Today was first time patient hasn't noticed vaginal bleeding. She denies chest pain, SOB, dizziness, palpitations. VS reviewed. Physical exam shows mild pallor, hirustism, obese female in no acute distress, who is cooperative with exam. She has no cyanosis. Cardiac and pulm exam unremarkable. 1. Acute Blood loss anemia 2. Vaginal bleeding 3. History of pulmonary emboli - seen on CT imaging, was on Eliquis prior to admission. 4. Coagulopathy - likely causing Problems listed above. 5. GI prophylaxis 6. DVT Prophylaxis - Tranfuse PRBC as needed. Currently hemodynamically stable. She has no active vaginal bleeding at this current point. - She is being transitioned to coumadin via heparin bridge. - Before continuing anticoagulation, we will consult Heme/Onc and tactical response group officer. Both familiar to patient. Per EMR review, there was consideration to start estrogen therapy for vaginal bleeding but I am concerned for increased risk of VTE associated with estrogens. Vaginal bleeding needs addressed prior to anticoagulation Patient states she is willing for a hysterectomy, appreciate Delinquency Prevention Officer input on this. Consult was put in this evening, will call Delinquency Prevention Officer tomorrow. - PPI therapy
--- NOTE | 2017-11-02 15:56 | Oncology Inp Consult Note ---
<Romario Doyle - Last Filed: 11/02/17 16:46> Date of Encounter: 11/02/17 Time of Encounter: 15:51 Assessment and Plan (1) Vaginal bleeding Status: Acute Assessment and plan: presented with vaginal bleeding when being on eliquis for b/l PE currently on heparin drip and primary team has started bridging to Coumadin intial hgb 6.1. S/p 2 PBRC infusion and hgb increased to 7.7 and now 7.3 patient reports vaginal bleeding has stopped underlying etiology of bleeding has not been assesed. Patient sees Dr. Conte (OB/ [employer]) outpatient and was scheduled to have biopsy and then placement of IUD for control of bleeding. Recommend consulting OBGYN to get biopsy in patient while on heparin drip and possible placement of IUD if indicated. We will give additional unit of PBRC and start IV iron. (2) Hx of pulmonary embolus Status: Acute Assessment and plan: 10/07/2017 diagnosed with b/l pulmonary embolism currently on heparin drip. Patient needs at least 3 months of anticoagulation before being reevaluated for discontinuation of anticoagulation. continue heparin and plan as above. (3) Hx of deep venous thrombosis Status: Acute Assessment and plan: b/l LE doppler negative on admission on heparin drip (4) Iron deficiency anemia Status: Acute Assessment and plan: 2nd to vaginal bleeding will replace today. Qualifiers: Iron deficiency anemia type: chronic blood loss Qualified Code(s): D50.0 - Iron deficiency anemia secondary to blood loss (chronic) - Data of Consult Patient: known to practice within the last 3 years Consult date: 11/02/17 Requesting Physician: Sarah Arreaga MD Primary Care Provider: Abraham Pelletier DO - Consult Narrative Reason for consult: Anticoagulation History of present illness: Ms. Nuñez is a 42 year old female presents with chief complaint of vaginal bleeding started 9 days ago. Patient reports she was going through 7 packs large pads in the past few days before admission. Patient is on a course for recent labs on 10/07/17. On admission patient's hemoglobin was 6.1. She had hx right LE dvt and was placed on coumadin for 6 months and followed by Dr. Orourke at [facility]. Patient has required two PRBC this visit. HGB improved to 7.7 and today is 7.3. She reports her vaginal bleeding has stopped. She is on heparin drip right now. Eliquis has been D/c. She is being bridged to warfarin. student accounts manager is being consulted by primary team for evaluation of the vaginal bleeding. Past Med Surg Social Fam HX - Past Medical History Medical history: asthma, DVT, hypertension, pulmonary embolus Additional medical history: mitral valve prolapse, factor 5 Psychiatric history: no psych history - Past Surgical History Surgical History: cholecystectomy, orthopedic, other, other Additional surgical history: Bone Spurs left foot - Social History Smoking Status: Never smoker Smokeless Tobacco Status: No Alcohol use: none Drug use: none - Family History Father Living Status: Hx Family Respiratory Disorders: Yes Hx Family Cancer: Yes (Lung) Hx Family Endocrine Disorder: Yes Mother Living Status: Hx Family Cardiac Disorders: Yes Medications and Allergies Albuterol Sulfate [Proair Hfa] 2 puff IH Q6H 02/01/17 [History] Aspirin Enteric Coated [Aspirin EC] 81 mg PO DAILY 02/01/17 [History] Losartan Potassium [Cozaar] 100 mg PO DAILY 02/01/17 [History] Pantoprazole Sodium [Protonix] 40 mg PO BID 02/01/17 [History] Albuterol Neb [Proventil Neb] 2.5 mg IH TID 07/09/17 [History] Beclomethasone Diprop 80mcg [Qvar 80 mcg] 2 puff IH BID 07/09/17 [History] Calcium Carb, Citrate/Vit D3 [Calcium + D3 ER Tablet] 1 tab PO DAILY 07/09/17 [ History] Furosemide [Lasix] 20 mg PO DAILY 07/09/17 [History] Ferrous Sulfate [Iron] 325 mg PO BID #60 tablet 08/12/17 [Rx] Apixaban [Eliquis] 5 mg PO BID #60 tablet 10/28/17 [Rx] Clopidogrel [Plavix] 75 mg PO DAILY 11/02/17 [History] 3 Allergy/AdvReac Type Severity Reaction Status Date / Time Amoxicillin Allergy Mild swelling Verified 08/10/17 10:31 naproxen Allergy Mild cold sweats Verified 08/10/17 10:31 orphenadrine Allergy Mild severe Verified 08/10/17 10:31 headache Oxycodone [From Percocet] Allergy Mild Hives Verified 08/10/17 10:31 ranitidine Allergy Mild GI bleeding Verified 08/10/17 10:31 sertraline [From Zoloft] Allergy Mild rash, Verified 08/10/17 10:31 sweating codeine Allergy Hives Verified 08/10/17 10:31 hydrocodone Allergy Hives Verified 08/10/17 10:31 Sulfa (Sulfonamide Allergy Hives Verified 08/10/17 10:31 Antibiotics) Review of systems: Constitutional: Denies fever, chills HEENT: Denies headache, vision changes, neck pain, sore throat, rhinorrhea Heart: Denies chest pain palpitations Lungs: Denies shortness of breath cough Abdomen: Denies abdominal pain nausea vomiting diarrhea Back: Denies back pain Kidney: Denies dysuria, hematuria Block Handler: reports vaginal bleeding Skin: Denies rash, lesions Extremities: reports LE swelling, denies pain Neuro: Denies numbness and tingling Oncology - Exam - Constitutional Vitals: Temp Pulse Resp BP Pulse Ox 97.5 F L 79 16 127/75 96 11/02/17 15:04 11/02/17 15:04 11/02/17 15:04 11/02/17 15:04 11/02/17 15:04 - Additional findings Additional findings: General: plesant, obese without distress HEENT: Head atraumatic, normocephalic, EOMI, PERRL, neck nontender to palpation , absent lymphadenopathy, Moist Mucous Membranes, Heart: Regular rate and rhythm with no murmur Lungs: Clear to auscultation bilaterally Abdomen: Soft nontender, nondistended positive bowel sounds Skin: warm and dry, absent rash Extremities: mild b/l pedal edema Neuro: alert oriented x3 Vascular: Pedal and radial pulses 2 out of 4 Oncology - Results Labs: 3 11/02/17 11/02/17 11/02/17 15:01 05:37 05:37 WBC 7.9 RBC 2.63 L Hgb 7.3 L Hct 23.3 L MCV 88.6 MCH 27.8 L MCHC 31.3 L RDW 16.5 H Plt Count 160 MPV 10.2 Immature Gran % 2.4 Seg Neutrophils % 60.4 Lymphocytes % 27.3 Monocytes % 6.1 Eosinophils % 3.4 Basophils % 0.4 Neutrophils # 4.8 Lymphocytes # 2.2 Monocytes # 0.5 Eosinophils # 0.3 Basophils # 0.0 Nucleated RBCs/100 WBC PT INR Heparin Anti-Xa, Unfract 0.22 L Sodium 140 Potassium 3.6 Chloride 108 H Carbon Dioxide 25 BUN 10 Creatinine 0.88 Est GFR ( Amer) > 60 Est GFR (Non-Af Amer) > 60 BUN/Creatinine Ratio 11 Glucose 104 POC Glucose Calculated Osmolality 289 Calcium 8.3 L Magnesium Iron % Saturation Transferrin Total Bilirubin AST ALT Alkaline Phosphatase Serum Total Protein Albumin Globulin Albumin/Globulin Ratio Urine Color Urine Clarity Urine pH Ur Specific Colbert Urine Protein Urine Glucose (UA) Urine Ketones Urine Blood Urine Nitrite Urine Bilirubin Urine Urobilinogen Ur Leukocyte Esterase Urine Microscopic RBC Urine Microscopic WBC Ur Squamous Epith Cells Urine Bacteria Hyaline Casts Ur Culture Indicated? 3 11/02/17 11/01/17 11/01/17 05:37 16:05 09:28 WBC RBC Hgb Hct MCV MCH MCHC RDW Plt Count MPV Immature Gran % Seg Neutrophils % Lymphocytes % Monocytes % Eosinophils % Basophils % Neutrophils # Lymphocytes # Monocytes # Eosinophils # Basophils # Nucleated RBCs/100 WBC PT 12.6 H INR 1.1 Heparin Anti-Xa, Unfract 0.39 0.55 Sodium Potassium Chloride Carbon Dioxide BUN Creatinine Est GFR ( Amer) Est GFR (Non-Af Amer) BUN/Creatinine Ratio Glucose POC Glucose Calculated Osmolality Calcium Magnesium Iron % Saturation Transferrin Total Bilirubin AST ALT Alkaline Phosphatase Serum Total Protein Albumin Globulin Albumin/Globulin Ratio Urine Color Urine Clarity Urine pH Ur Specific Colbert Urine Protein Urine Glucose (UA) Urine Ketones Urine Blood Urine Nitrite Urine Bilirubin Urine Urobilinogen Ur Leukocyte Esterase Urine Microscopic RBC Urine Microscopic WBC Ur Squamous Epith Cells Urine Bacteria Hyaline Casts Ur Culture Indicated? 3 11/01/17 11/01/17 11/01/17 02:24 02:24 02:24 WBC RBC Hgb Hct MCV MCH MCHC RDW Plt Count MPV Immature Gran % Seg Neutrophils % Lymphocytes % Monocytes % Eosinophils % Basophils % Neutrophils # Lymphocytes # Monocytes # Eosinophils # Basophils # Nucleated RBCs/100 WBC PT 12.0 INR 1.1 Heparin Anti-Xa, Unfract 0.71 H Sodium 141 Potassium 3.6 Chloride 109 H Carbon Dioxide 25 BUN 8 Creatinine 1.02 Est GFR ( Amer) > 60 Est GFR (Non-Af Amer) 59 L BUN/Creatinine Ratio 8 Glucose 126 H POC Glucose Calculated Osmolality 292 Calcium 8.4 L Magnesium 2.3 Iron % Saturation Transferrin Total Bilirubin AST ALT Alkaline Phosphatase Serum Total Protein Albumin Globulin Albumin/Globulin Ratio Urine Color Urine Clarity Urine pH Ur Specific Colbert Urine Protein Urine Glucose (UA) Urine Ketones Urine Blood Urine Nitrite Urine Bilirubin Urine Urobilinogen Ur Leukocyte Esterase Urine Microscopic RBC Urine Microscopic WBC Ur Squamous Epith Cells Urine Bacteria Hyaline Casts Ur Culture Indicated? 3 11/01/17 11/01/17 10/31/17 02:24 02:24 19:52 WBC 8.7 RBC 2.79 L Hgb 7.7 L Hct 24.6 L MCV 88.2 MCH 27.6 L MCHC 31.3 L RDW 16.2 H Plt Count 172 MPV 10.9 Immature Gran % Seg Neutrophils % Lymphocytes % Monocytes % Eosinophils % Basophils % Neutrophils # Lymphocytes # Monocytes # Eosinophils # Basophils # Nucleated RBCs/100 WBC PT INR Heparin Anti-Xa, Unfract 1.33 H* Sodium Potassium Chloride Carbon Dioxide BUN Creatinine Est GFR ( Amer) Est GFR (Non-Af Amer) BUN/Creatinine Ratio Glucose POC Glucose Calculated Osmolality Calcium Magnesium Iron 29 L % Saturation 8 L Transferrin 257 Total Bilirubin AST ALT Alkaline Phosphatase Serum Total Protein Albumin Globulin Albumin/Globulin Ratio Urine Color Urine Clarity Urine pH Ur Specific Colbert Urine Protein Urine Glucose (UA) Urine Ketones Urine Blood Urine Nitrite Urine Bilirubin Urine Urobilinogen Ur Leukocyte Esterase Urine Microscopic RBC Urine Microscopic WBC Ur Squamous Epith Cells Urine Bacteria Hyaline Casts Ur Culture Indicated? 3 10/31/17 10/31/17 10/31/17 17:49 12:19 11:46 WBC 9.4 RBC 2.84 L Hgb 7.7 L Hct 24.4 L MCV 85.9 MCH 27.1 L MCHC 31.6 RDW 16.0 H Plt Count 198 MPV 10.8 Immature Gran % Seg Neutrophils % Lymphocytes % Monocytes % Eosinophils % Basophils % Neutrophils # Lymphocytes # Monocytes # Eosinophils # Basophils # Nucleated RBCs/100 WBC PT INR Heparin Anti-Xa, Unfract 0.63 Sodium Potassium Chloride Carbon Dioxide BUN Creatinine Est GFR ( Amer) Est GFR (Non-Af Amer) BUN/Creatinine Ratio Glucose POC Glucose 98 Calculated Osmolality Calcium Magnesium Iron % Saturation Transferrin Total Bilirubin AST ALT Alkaline Phosphatase Serum Total Protein Albumin Globulin Albumin/Globulin Ratio Urine Color Urine Clarity Urine pH Ur Specific Colbert Urine Protein Urine Glucose (UA) Urine Ketones Urine Blood Urine Nitrite Urine Bilirubin Urine Urobilinogen Ur Leukocyte Esterase Urine Microscopic RBC Urine Microscopic WBC Ur Squamous Epith Cells Urine Bacteria Hyaline Casts Ur Culture Indicated? 3 10/31/17 10/31/17 10/31/17 10:24 10:07 06:22 WBC RBC Hgb 7.8 L Hct 24.3 L MCV MCH MCHC RDW Plt Count MPV Immature Gran % Seg Neutrophils % Lymphocytes % Monocytes % Eosinophils % Basophils % Neutrophils # Lymphocytes # Monocytes # Eosinophils # Basophils # Nucleated RBCs/100 WBC PT INR Heparin Anti-Xa, Unfract Sodium 141 Potassium 3.6 Chloride 106 Carbon Dioxide 26 BUN 10 Creatinine 0.97 Est GFR ( Amer) > 60 Est GFR (Non-Af Amer) > 60 BUN/Creatinine Ratio 10 Glucose 107 H POC Glucose Calculated Osmolality 292 Calcium 8.5 L Magnesium Iron % Saturation Transferrin Total Bilirubin 1.2 H AST 11 L ALT 7 Alkaline Phosphatase 59 Serum Total Protein 5.4 L Albumin 3.4 L Globulin 2.0 L Albumin/Globulin Ratio 1.7 Urine Color Yellow Urine Clarity Clear Urine pH 6.5 Ur Specific Colbert > 1.030 H Urine Protein Negative Urine Glucose (UA) Normal Urine Ketones Negative Urine Blood Moderate H Urine Nitrite Negative Urine Bilirubin Negative Urine Urobilinogen Normal Ur Leukocyte Esterase Negative Urine Microscopic RBC 3-5 H Urine Microscopic WBC 3-5 H Ur Squamous Epith Cells Moderate H Urine Bacteria None Seen Hyaline Casts None Seen Ur Culture Indicated? NO 3 10/31/17 10/31/17 10/31/17 06:22 06:22 06:22 WBC 7.8 RBC 2.72 L Hgb 7.5 L Hct 23.5 L MCV 86.4 MCH 27.6 L MCHC 31.9 RDW 16.0 H Plt Count 172 MPV 9.8 Immature Gran % 1.7 Seg Neutrophils % 66.7 Lymphocytes % 23.6 Monocytes % 6.5 Eosinophils % 1.1 Basophils % 0.4 Neutrophils # 5.2 Lymphocytes # 1.9 Monocytes # 0.5 Eosinophils # 0.1 Basophils # 0.0 Nucleated RBCs/100 WBC 0.4 H PT 14.9 H INR 1.3 Heparin Anti-Xa, Unfract Sodium Potassium Chloride Carbon Dioxide BUN Creatinine Est GFR ( Amer) Est GFR (Non-Af Amer) BUN/Creatinine Ratio Glucose POC Glucose Calculated Osmolality Calcium Magnesium 2.3 Iron % Saturation Transferrin Total Bilirubin AST ALT Alkaline Phosphatase Serum Total Protein Albumin Globulin Albumin/Globulin Ratio Urine Color Urine Clarity Urine pH Ur Specific Colbert Urine Protein Urine Glucose (UA) Urine Ketones Urine Blood Urine Nitrite Urine Bilirubin Urine Urobilinogen Ur Leukocyte Esterase Urine Microscopic RBC Urine Microscopic WBC Ur Squamous Epith Cells Urine Bacteria Hyaline Casts Ur Culture Indicated? 3 10/31/17 05:45 WBC RBC Hgb Hct MCV MCH MCHC RDW Plt Count MPV Immature Gran % Seg Neutrophils % Lymphocytes % Monocytes % Eosinophils % Basophils % Neutrophils # Lymphocytes # Monocytes # Eosinophils # Basophils # Nucleated RBCs/100 WBC PT INR Heparin Anti-Xa, Unfract Sodium Potassium Chloride Carbon Dioxide BUN Creatinine Est GFR ( Amer) Est GFR (Non-Af Amer) BUN/Creatinine Ratio Glucose POC Glucose 111 H Calculated Osmolality Calcium Magnesium Iron % Saturation Transferrin Total Bilirubin AST ALT Alkaline Phosphatase Serum Total Protein Albumin Globulin Albumin/Globulin Ratio Urine Color Urine Clarity Urine pH Ur Specific Colbert Urine Protein Urine Glucose (UA) Urine Ketones Urine Blood Urine Nitrite Urine Bilirubin Urine Urobilinogen Ur Leukocyte Esterase Urine Microscopic RBC Urine Microscopic WBC Ur Squamous Epith Cells Urine Bacteria Hyaline Casts Ur Culture Indicated? Consult Discharge Plan - Plan Referrals: Abraham Pelletier DO [Primary Care Provider] - <Sharlene Franco - Last Filed: 11/03/17 08:14> Date of Encounter: 11/03/17 - Data of Consult Requesting Physician: Sarah Arreaga MD Primary Care Provider: Abraham Pelletier DO - Consult Narrative History of present illness: Ms. Nuñez is a 42 year old female seen and examined by me bedside. She does not have vaginal bleeding currently. She is on heparin plan to transition to Coumadin per medical team. She needed endometrial biopsy before planning IUD, recommended [employer] evaluation to obtain endometrial biopsy while she is inpatient. She is on anticoagulation that needs to be continued without interruption due to acute Pulm embolism diagnosed earlier this month. During bedside rounds, _Romario Dao , a Resident Physician, was present and I discussed the treatment in the care of the patient Oncology - Exam - Constitutional Vitals: Temp Pulse Resp BP Pulse Ox 97.5 F L 73 16 130/77 96 11/03/17 07:02 11/03/17 07:02 11/03/17 07:02 11/03/17 07:02 11/03/17 07:02 Oncology - Results Labs: 3 11/03/17 11/03/17 11/03/17 05:15 05:15 05:15 WBC 9.5 RBC 3.00 L Hgb 8.2 L Hct 26.1 L MCV 87.0 MCH 27.3 L MCHC 31.4 L RDW 16.5 H Plt Count 179 MPV 10.2 Immature Gran % 2.0 Seg Neutrophils % 62.5 Lymphocytes % 26.3 Monocytes % 5.7 Eosinophils % 3.0 Basophils % 0.5 Neutrophils # 6.0 Lymphocytes # 2.5 Monocytes # 0.5 Eosinophils # 0.3 Basophils # 0.1 Nucleated RBCs/100 WBC PT 12.7 H INR 1.1 Heparin Anti-Xa, Unfract Sodium 140 Potassium 4.0 Chloride 108 H Carbon Dioxide 25 BUN 11 Creatinine 0.85 Est GFR ( Amer) > 60 Est GFR (Non-Af Amer) > 60 BUN/Creatinine Ratio 13 Glucose 99 POC Glucose Calculated Osmolality 289 Calcium 8.8 Magnesium Iron % Saturation Transferrin Total Bilirubin AST ALT Alkaline Phosphatase Serum Total Protein Albumin Globulin Albumin/Globulin Ratio Urine Color Urine Clarity Urine pH Ur Specific Colbert Urine Protein Urine Glucose (UA) Urine Ketones Urine Blood Urine Nitrite Urine Bilirubin Urine Urobilinogen Ur Leukocyte Esterase Urine Microscopic RBC Urine Microscopic WBC Ur Squamous Epith Cells Urine Bacteria Hyaline Casts Ur Culture Indicated? Blood Type Antibody Screen Crossmatch 3 11/02/17 11/02/17 11/02/17 22:40 17:27 16:48 WBC RBC Hgb 8.0 L Hct 26.0 L MCV MCH MCHC RDW Plt Count MPV Immature Gran % Seg Neutrophils % Lymphocytes % Monocytes % Eosinophils % Basophils % Neutrophils # Lymphocytes # Monocytes # Eosinophils # Basophils # Nucleated RBCs/100 WBC PT INR Heparin Anti-Xa, Unfract 0.46 Sodium Potassium Chloride Carbon Dioxide BUN Creatinine Est GFR ( Amer) Est GFR (Non-Af Amer) BUN/Creatinine Ratio Glucose POC Glucose Calculated Osmolality Calcium Magnesium Iron % Saturation Transferrin Total Bilirubin AST ALT Alkaline Phosphatase Serum Total Protein Albumin Globulin Albumin/Globulin Ratio Urine Color Urine Clarity Urine pH Ur Specific Colbert Urine Protein Urine Glucose (UA) Urine Ketones Urine Blood Urine Nitrite Urine Bilirubin Urine Urobilinogen Ur Leukocyte Esterase Urine Microscopic RBC Urine Microscopic WBC Ur Squamous Epith Cells Urine Bacteria Hyaline Casts Ur Culture Indicated? Blood Type O POSITIVE Antibody Screen NEGATIVE Crossmatch See Detail 3 11/02/17 11/02/17 11/02/17 15:01 05:37 05:37 WBC 7.9 RBC 2.63 L Hgb 7.3 L Hct 23.3 L MCV 88.6 MCH 27.8 L MCHC 31.3 L RDW 16.5 H Plt Count 160 MPV 10.2 Immature Gran % 2.4 Seg Neutrophils % 60.4 Lymphocytes % 27.3 Monocytes % 6.1 Eosinophils % 3.4 Basophils % 0.4 Neutrophils # 4.8 Lymphocytes # 2.2 Monocytes # 0.5 Eosinophils # 0.3 Basophils # 0.0 Nucleated RBCs/100 WBC PT INR Heparin Anti-Xa, Unfract 0.22 L Sodium 140 Potassium 3.6 Chloride 108 H Carbon Dioxide 25 BUN 10 Creatinine 0.88 Est GFR ( Amer) > 60 Est GFR (Non-Af Amer) > 60 BUN/Creatinine Ratio 11 Glucose 104 POC Glucose Calculated Osmolality 289 Calcium 8.3 L Magnesium Iron % Saturation Transferrin Total Bilirubin AST ALT Alkaline Phosphatase Serum Total Protein Albumin Globulin Albumin/Globulin Ratio Urine Color Urine Clarity Urine pH Ur Specific Colbert Urine Protein Urine Glucose (UA) Urine Ketones Urine Blood Urine Nitrite Urine Bilirubin Urine Urobilinogen Ur Leukocyte Esterase Urine Microscopic RBC Urine Microscopic WBC Ur Squamous Epith Cells Urine Bacteria Hyaline Casts Ur Culture Indicated? Blood Type Antibody Screen Crossmatch 3 11/02/17 11/01/17 11/01/17 05:37 16:05 09:28 WBC RBC Hgb Hct MCV MCH MCHC RDW Plt Count MPV Immature Gran % Seg Neutrophils % Lymphocytes % Monocytes % Eosinophils % Basophils % Neutrophils # Lymphocytes # Monocytes # Eosinophils # Basophils # Nucleated RBCs/100 WBC PT 12.6 H INR 1.1 Heparin Anti-Xa, Unfract 0.39 0.55 Sodium Potassium Chloride Carbon Dioxide BUN Creatinine Est GFR ( Amer) Est GFR (Non-Af Amer) BUN/Creatinine Ratio Glucose POC Glucose Calculated Osmolality Calcium Magnesium Iron % Saturation Transferrin Total Bilirubin AST ALT Alkaline Phosphatase Serum Total Protein Albumin Globulin Albumin/Globulin Ratio Urine Color Urine Clarity Urine pH Ur Specific Colbert Urine Protein Urine Glucose (UA) Urine Ketones Urine Blood Urine Nitrite Urine Bilirubin Urine Urobilinogen Ur Leukocyte Esterase Urine Microscopic RBC Urine Microscopic WBC Ur Squamous Epith Cells Urine Bacteria Hyaline Casts Ur Culture Indicated? Blood Type Antibody Screen Crossmatch 3 11/01/17 11/01/17 11/01/17 02:24 02:24 02:24 WBC RBC Hgb Hct MCV MCH MCHC RDW Plt Count MPV Immature Gran % Seg Neutrophils % Lymphocytes % Monocytes % Eosinophils % Basophils % Neutrophils # Lymphocytes # Monocytes # Eosinophils # Basophils # Nucleated RBCs/100 WBC PT 12.0 INR 1.1 Heparin Anti-Xa, Unfract 0.71 H Sodium 141 Potassium 3.6 Chloride 109 H Carbon Dioxide 25 BUN 8 Creatinine 1.02 Est GFR ( Amer) > 60 Est GFR (Non-Af Amer) 59 L BUN/Creatinine Ratio 8 Glucose 126 H POC Glucose Calculated Osmolality 292 Calcium 8.4 L Magnesium 2.3 Iron % Saturation Transferrin Total Bilirubin AST ALT Alkaline Phosphatase Serum Total Protein Albumin Globulin Albumin/Globulin Ratio Urine Color Urine Clarity Urine pH Ur Specific Colbert Urine Protein Urine Glucose (UA) Urine Ketones Urine Blood Urine Nitrite Urine Bilirubin Urine Urobilinogen Ur Leukocyte Esterase Urine Microscopic RBC Urine Microscopic WBC Ur Squamous Epith Cells Urine Bacteria Hyaline Casts Ur Culture Indicated? Blood Type Antibody Screen Crossmatch 3 11/01/17 11/01/17 10/31/17 02:24 02:24 19:52 WBC 8.7 RBC 2.79 L Hgb 7.7 L Hct 24.6 L MCV 88.2 MCH 27.6 L MCHC 31.3 L RDW 16.2 H Plt Count 172 MPV 10.9 Immature Gran % Seg Neutrophils % Lymphocytes % Monocytes % Eosinophils % Basophils % Neutrophils # Lymphocytes # Monocytes # Eosinophils # Basophils # Nucleated RBCs/100 WBC PT INR Heparin Anti-Xa, Unfract 1.33 H* Sodium Potassium Chloride Carbon Dioxide BUN Creatinine Est GFR ( Amer) Est GFR (Non-Af Amer) BUN/Creatinine Ratio Glucose POC Glucose Calculated Osmolality Calcium Magnesium Iron 29 L % Saturation 8 L Transferrin 257 Total Bilirubin AST ALT Alkaline Phosphatase Serum Total Protein Albumin Globulin Albumin/Globulin Ratio Urine Color Urine Clarity Urine pH Ur Specific Colbert Urine Protein Urine Glucose (UA) Urine Ketones Urine Blood Urine Nitrite Urine Bilirubin Urine Urobilinogen Ur Leukocyte Esterase Urine Microscopic RBC Urine Microscopic WBC Ur Squamous Epith Cells Urine Bacteria Hyaline Casts Ur Culture Indicated? Blood Type Antibody Screen Crossmatch 3 10/31/17 10/31/17 10/31/17 17:49 12:19 11:46 WBC 9.4 RBC 2.84 L Hgb 7.7 L Hct 24.4 L MCV 85.9 MCH 27.1 L MCHC 31.6 RDW 16.0 H Plt Count 198 MPV 10.8 Immature Gran % Seg Neutrophils % Lymphocytes % Monocytes % Eosinophils % Basophils % Neutrophils # Lymphocytes # Monocytes # Eosinophils # Basophils # Nucleated RBCs/100 WBC PT INR Heparin Anti-Xa, Unfract 0.63 Sodium Potassium Chloride Carbon Dioxide BUN Creatinine Est GFR ( Amer) Est GFR (Non-Af Amer) BUN/Creatinine Ratio Glucose POC Glucose 98 Calculated Osmolality Calcium Magnesium Iron % Saturation Transferrin Total Bilirubin AST ALT Alkaline Phosphatase Serum Total Protein Albumin Globulin Albumin/Globulin Ratio Urine Color Urine Clarity Urine pH Ur Specific Colbert Urine Protein Urine Glucose (UA) Urine Ketones Urine Blood Urine Nitrite Urine Bilirubin Urine Urobilinogen Ur Leukocyte Esterase Urine Microscopic RBC Urine Microscopic WBC Ur Squamous Epith Cells Urine Bacteria Hyaline Casts Ur Culture Indicated? Blood Type Antibody Screen Crossmatch 3 10/31/17 10/31/17 10/31/17 10:24 10:07 06:22 WBC RBC Hgb 7.8 L Hct 24.3 L MCV MCH MCHC RDW Plt Count MPV Immature Gran % Seg Neutrophils % Lymphocytes % Monocytes % Eosinophils % Basophils % Neutrophils # Lymphocytes # Monocytes # Eosinophils # Basophils # Nucleated RBCs/100 WBC PT INR Heparin Anti-Xa, Unfract Sodium 141 Potassium 3.6 Chloride 106 Carbon Dioxide 26 BUN 10 Creatinine 0.97 Est GFR ( Amer) > 60 Est GFR (Non-Af Amer) > 60 BUN/Creatinine Ratio 10 Glucose 107 H POC Glucose Calculated Osmolality 292 Calcium 8.5 L Magnesium Iron % Saturation Transferrin Total Bilirubin 1.2 H AST 11 L ALT 7 Alkaline Phosphatase 59 Serum Total Protein 5.4 L Albumin 3.4 L Globulin 2.0 L Albumin/Globulin Ratio 1.7 Urine Color Yellow Urine Clarity Clear Urine pH 6.5 Ur Specific Colbert > 1.030 H Urine Protein Negative Urine Glucose (UA) Normal Urine Ketones Negative Urine Blood Moderate H Urine Nitrite Negative Urine Bilirubin Negative Urine Urobilinogen Normal Ur Leukocyte Esterase Negative Urine Microscopic RBC 3-5 H Urine Microscopic WBC 3-5 H Ur Squamous Epith Cells Moderate H Urine Bacteria None Seen Hyaline Casts None Seen Ur Culture Indicated? NO Blood Type Antibody Screen Crossmatch 3 10/31/17 10/31/17 10/31/17 06:22 06:22 06:22 WBC 7.8 RBC 2.72 L Hgb 7.5 L Hct 23.5 L MCV 86.4 MCH 27.6 L MCHC 31.9 RDW 16.0 H Plt Count 172 MPV 9.8 Immature Gran % 1.7 Seg Neutrophils % 66.7 Lymphocytes % 23.6 Monocytes % 6.5 Eosinophils % 1.1 Basophils % 0.4 Neutrophils # 5.2 Lymphocytes # 1.9 Monocytes # 0.5 Eosinophils # 0.1 Basophils # 0.0 Nucleated RBCs/100 WBC 0.4 H PT 14.9 H INR 1.3 Heparin Anti-Xa, Unfract Sodium Potassium Chloride Carbon Dioxide BUN Creatinine Est GFR ( Amer) Est GFR (Non-Af Amer) BUN/Creatinine Ratio Glucose POC Glucose Calculated Osmolality Calcium Magnesium 2.3 Iron % Saturation Transferrin Total Bilirubin AST ALT Alkaline Phosphatase Serum Total Protein Albumin Globulin Albumin/Globulin Ratio Urine Color Urine Clarity Urine pH Ur Specific Colbert Urine Protein Urine Glucose (UA) Urine Ketones Urine Blood Urine Nitrite Urine Bilirubin Urine Urobilinogen Ur Leukocyte Esterase Urine Microscopic RBC Urine Microscopic WBC Ur Squamous Epith Cells Urine Bacteria Hyaline Casts Ur Culture Indicated? Blood Type Antibody Screen Crossmatch 3 10/31/17 05:45 WBC RBC Hgb Hct MCV MCH MCHC RDW Plt Count MPV Immature Gran % Seg Neutrophils % Lymphocytes % Monocytes % Eosinophils % Basophils % Neutrophils # Lymphocytes # Monocytes # Eosinophils # Basophils # Nucleated RBCs/100 WBC PT INR Heparin Anti-Xa, Unfract Sodium Potassium Chloride Carbon Dioxide BUN Creatinine Est GFR ( Amer) Est GFR (Non-Af Amer) BUN/Creatinine Ratio Glucose POC Glucose 111 H Calculated Osmolality Calcium Magnesium Iron % Saturation Transferrin Total Bilirubin AST ALT Alkaline Phosphatase Serum Total Protein Albumin Globulin Albumin/Globulin Ratio Urine Color Urine Clarity Urine pH Ur Specific Colbert Urine Protein Urine Glucose (UA) Urine Ketones Urine Blood Urine Nitrite Urine Bilirubin Urine Urobilinogen Ur Leukocyte Esterase Urine Microscopic RBC Urine Microscopic WBC Ur Squamous Epith Cells Urine Bacteria Hyaline Casts Ur Culture Indicated? Blood Type Antibody Screen Crossmatch
--- NOTE | 2017-11-02 17:51 | Electrocardiograph Report ---
[place] [id number] Test Date: 2017-10-30 Pat Name: Carla Nuñez Department: [id number] Room: 3A35 Gender: F Photocopying Machine Operator: LUCINDA : [id number] Requested By: [id number] Order Number: [id number] Reading MD: Sana Lloyd Measurements Intervals [place] Rate: 82 P: 11 CT: 227 QRS: -5 QRSD: 93 T: 1 QT: 366 QTc: 405 Interpretive Statements SINUS RHYTHM WITH FIRST DEGREE AV BLOCK LOW QRS VOLTAGE IN PRECORDIAL LEADS [QRS DEFLECTION < 1.0 mV IN CHEST LEADS] INFERIOR MYOCARDIAL INFARCTION [40+ ms Q WAVE AND/OR ST/T ABNORMALITY IN II/aVF], PROBABLY OLD Electronically Signed On 11-02-2017 17:50:27 EDT by Sana Lloyd
[2017-11-02] MEDS ORDERED: *HR* Warfarin 7.5 MG TABLET PO ONE (18:00)
[2017-11-02] MEDS ORDERED: 0.9 % Sodium Chloride 250 ML ONE (20:25)
[2017-11-02] MEDS ORDERED: IRON DEXTRAN COMPLEX IVPB ONE (23:30)
[2017-11-02] MEDS ORDERED: SODIUM CHLORIDE 0.9% IVPB ONE (23:30)
[2017-11-03] MEDS: 0.9 % Sodium Chloride 1,000 ML IVC SCH (03:32)
[2017-11-03 05:47] LABS: Basophils # 0.1 K/mcL (0.0-0.2); Basophils % 0.5 %; Eosinophils # 0.3 K/mcL (0.0-0.6); Hematocrit 26.1 % (35.3-44.9); Hemoglobin 8.2 g/dL (11.5-15.4); Lymphocytes # 2.5 K/mcL (0.6-4.6); Lymphocytes % 26.3 %; Mean Corpuscular HGB Conc 31.4 g/dL (31.6-35.5); Mean Corpuscular Hemoglobin 27.3 pg (28.0-33.3); Mean Platelet Volume 10.2 fL (9.4-12.4); Monocytes # 0.5 K/mcL (0.0-1.3); Monocytes % 5.7 %; Platelet Count 179 K/mcL (140-400); Red Cell Distribution Width 16.5 % (11.5-14.5); Segmented Neutrophils % 62.5 %
[2017-11-03 05:54] LABS: INR 1.1; Prothrombin Time 12.7 Seconds (9.4-12.1)
[2017-11-03 06:07] LABS: BUN/Creatinine Ratio 13 (6-26); Blood Urea Nitrogen 11 mg/dL (6-20); Calcium 8.8 mg/dL (8.6-10.3); Carbon Dioxide 25 mEq/L (23-29); Chloride 108 mEq/L (98-107); Glucose 99 mg/dL (70-105); Osmolality,Calculated 289 (280-300); Sodium 140 mEq/L (136-145); eGFR For Non-African Americans > 60 (> 60)
[2017-11-03] MEDS ORDERED: Cholecalciferol (D-3) 1,000 UNIT TABLET PO SCH (09:00)
--- NOTE | 2017-11-03 10:12 | Discharge Summary ---
- NOTES TO OUTPATIENT PROVIDER Notes to Outpatient Provider: - Leaving AMA, discussed risks, agrees to return if signs/symptoms of anemia. - Lovenox bridge to coumadin as outpatient. INR 1.1 subtherapuetic at time of discharge. - Intake Rn appointment next available being set up for next available appointment. Needs biopsy. - Heme/Onc appointment is being scheduled for 1-2 days. - Holding aspirin/plavix on discharge. Consider if this home medication should be re-prescribed or not. Orders not resulted at time of discharge: Pending orders 11/04/17 04:00 BMP [Basic Metabolic Panel] AM 0400 Complete Blood Count [HEME] AM 0400 PT/INR [Prothrombin Time INR] [COAG] AM 0400 11/05/17 04:00 BMP [Basic Metabolic Panel] AM 0400 Complete Blood Count [HEME] AM 0400 PT/INR [Prothrombin Time INR] [COAG] AM 0400 11/06/17 04:00 PT/INR [Prothrombin Time INR] [COAG] AM 0400 11/07/17 04:00 PT/INR [Prothrombin Time INR] [COAG] AM 0400 Date of Encounter: 11/03/17 Time of Encounter: 10:08 - Discharge Diagnosis (1) Acute blood loss anemia Priority: Primary Status: Acute (2) Vaginal bleeding Priority: Secondary Status: Acute (3) Hx of deep venous thrombosis Priority: Secondary Status: Acute (4) Hx of pulmonary embolus Priority: Secondary Status: Acute (5) Iron deficiency anemia Priority: Secondary Status: Acute Qualifiers: Iron deficiency anemia type: chronic blood loss Qualified Code(s): D50.0 - Iron deficiency anemia secondary to blood loss (chronic) Hospital course: Ms. Nuñez is a 42 year old female with a past medical history of coagulopathy, on on Eliquis for bilateral pulmonary embolism on 10/07/17 that presented complaining of vaginal bleeding. 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 Kenneth Franco told her to go to the ER due to significant anemia hemoglobin level 6.1 on labs performed 10/28/17. Patient reports using up 7 packs of large pads during the past few days. Patient was evaluated by SUPERVISOR SHRIMP POND Dr. Martinez on who recommended performing an endometrial biopsy prior to inserting an IUD to control abnormal uterine bleeding. Patient reports tachycardia and right leg edema which has worsened since her recent pulmonary embolism diagnosis. The patient is not sexually active and does not have any children. She was admitted for acute blood loss anemia. Patient was hemodynamically stable, not hypotensive nor tachycardic. She required 3 units of PRBC during her stay. Hemoglobin was stablized briefly. She was started on heparin drip with plan to transition to coumadin. Hematology/Oncology consulted, agreed with having Gynecology team evaluate patient while admitted. Unfortunately, patient decided to leave AMA prior to formal evaluation. She was discussed risks of leaving prior to full workup and treatment, including hemorrhage, respiratory failure, cardiac ischemia/failure, and . She states she is aware of these risks. She agrees to return if signs/symptoms of anemia. She had no signs of active bleed and her vaginal bleeding resolved. She was discharged home AMA, but agrees to do Lovenox bridge to coumadin as outpatient. Intake Rn and Hem/Onc follow-ups are being made for tomorrow. Coumadin clinic is set up. Aspirin and Plavix were not continued from home medications. Discharge discussed with: patient - Time Spent with Patient Total time spent providing and/or coordinating discharge services: - Discharge Medications Prescriptions: Enoxaparin [Lovenox] 140 mg SQ Q12HR 7 Days #14 syr Warfarin [Coumadin] 7.5 mg PO 1800 #14 tablet Home Medications: Albuterol Sulfate [Proair Hfa] 2 puff IH Q6H 02/01/17 [History] Losartan Potassium [Cozaar] 100 mg PO DAILY 02/01/17 [History] Pantoprazole Sodium [Protonix] 40 mg PO BID 02/01/17 [History] Albuterol Neb [Proventil Neb] 2.5 mg IH TID 07/09/17 [History] Beclomethasone Diprop 80mcg [QVAR 80 mcg] 2 puff IH BID 07/09/17 [History] Calcium Carb, Citrate/Vit D3 [Calcium + D3 ER Tablet] 1 tab PO DAILY 07/09/17 [ History] Furosemide [Lasix] 20 mg PO DAILY 07/09/17 [History] Ferrous Sulfate [Iron] 325 mg PO BID #60 tablet 08/12/17 [Rx] Cholecalciferol (D-3) [Vitamin D] 1,000 unit PO DAILY tablet 11/03/17 [Rx] Enoxaparin [Lovenox] 140 mg SQ Q12HR 7 Days #14 syr 11/03/17 [Rx] Warfarin [Coumadin] 7.5 mg PO 1800 #14 tablet 11/03/17 [Rx] Allergies/Adverse Reactions: 3 Allergy/AdvReac Type Severity Reaction Status Date / Time Amoxicillin Allergy Mild swelling Verified 08/10/17 10:31 naproxen Allergy Mild cold sweats Verified 08/10/17 10:31 orphenadrine Allergy Mild severe Verified 08/10/17 10:31 headache Oxycodone [From Percocet] Allergy Mild Hives Verified 08/10/17 10:31 ranitidine Allergy Mild GI bleeding Verified 08/10/17 10:31 sertraline [From Zoloft] Allergy Mild rash, Verified 08/10/17 10:31 sweating codeine Allergy Hives Verified 08/10/17 10:31 hydrocodone Allergy Hives Verified 08/10/17 10:31 Sulfa (Sulfonamide Allergy Hives Verified 08/10/17 10:31 Antibiotics) Date of admission: 10/30/17 23:02 Primary care physician: Abraham Pelletier DO Consults: 10/31/17 00:12 Consult to Water Pollution Control Inspector [CONS] Routine Reason for SW Consult: Pt wants paper work regarding Living Will/Power of Engineering Technical Specialist 11/02/17 14:28 Consult to Oncology Hematology [CONS] Routine Consulting Provider: Erika Casas Reason for Consult: anemia Time Notified: 14:29 Call Completed: No 11/02/17 18:56 Consult to HEAD OF ENGLISH [CONS] Routine Consulting Provider: SUPERVISOR SHRIMP POND Janneth Reason for Consult: vaginal bleeding Call Completed: No Discharging clinician: Joel Merritt - Constitutional Vitals: Temp Pulse Resp BP Pulse Ox 97.5 F L 73 16 130/77 96 11/03/17 07:02 11/03/17 07:02 11/03/17 07:02 11/03/17 07:02 11/03/17 07:02 General appearance: Present: cooperative, A&O X 3, morbidly obese, pleasant, answers questions appropriately - Head Head exam: Present: atraumatic, normocephalic - Eye Eye exam: Present: PERRL, conjuntiva pink, sclera anicteric Pupils: Present: PERRL - Neck Neck exam general surgery: Present: supple, trachea midline. Absent: lymphadenopathy - Respiratory Respiratory exam: Present: CTAB. Absent: accessory muscle use, rales, rhonchi, wheezes - Cardiovascular Cardiovascular exam: Present: RRR, +S1, +S2. Absent: diastolic murmur, gallop, rubs, systolic murmur - GI/Abdominal GI/Abdominal exam: Present: normal bowel sounds, soft, no peritoneal signs. Absent: distended, tenderness - Extremities Exam Extremities exam: Present: warm, radial pulses palpable and symmetrical. Absent : calf tenderness, cyanotic, pedal edema - Neurological Exam Neurological exam: Present: CN II-XII intact, oriented X3, no focal deficits. Absent: pronater drift, facial droop, speech deficit - Skin Skin exam: Present: dry, intact - Patient Status Disposition: Left Against Medical Advice Condition: Undetermined Functional capacity at discharge: independent ambulation Overall status at discharge: patient is not back to baseline - Discharge Instructions Follow Up With: Abraham Pelletier, [Primary Care Provider] - - Diet and Activity Activity: return to work once cleared by your PCP/specialist Diet: advance to your usual diet
[2017-11-03] MEDS: Beclomethasone 80mcg MDI IH SCH (10:31)
[2017-11-03 11:07] VITALS: BP 112/75
--- NOTE | 2017-11-03 11:09 | Oncology Inp Progress Note ---
<Romario Doyle - Last Filed: 11/03/17 11:10> Date of Encounter: 11/03/17 Time of Encounter: 11:04 (1) Vaginal bleeding Status: Acute Assessment and plan: presented with vaginal bleeding when being on eliquis for b/l PE currently on heparin drip and primary team has started bridging to Coumadin intial hgb 6.1. S/p 3 P[facility] infusion and hgb now 8 give IV iron as well Patient will leave AMA instead of getting the Vaginal bleeding worked up. Consulted house superintendent who state they cannot do endometrial biopsy inpatient. Patient was also offered to be transferred to a different facility. At this point patient will be discharged on warfarin bridging with Lovenox. I have talked to [employer]INS[employer]ING [employer] SUPERVISOR and she will have a appointment tomorrow at 3:00 for a EMB. [employer] SUPERVISOR reports she does not need to be off of anticoagulation for this. Patient will also have follow-up appointment with oncology. Currently patient denies vaginal bleeding. (2) Hx of pulmonary embolus Status: Acute Assessment and plan: 10/07/2017 diagnosed with b/l pulmonary embolism Patient needs at least 3 months of anticoagulation before being reevaluated for discontinuation of anticoagulation. Patient will be discharged on Lovenox and Coumadin She is being set up with Coumadin clinic to follow INR. (3) Hx of deep venous thrombosis Status: Acute Assessment and plan: b/l LE doppler negative on admission (4) Iron deficiency anemia Status: Acute Assessment and plan: 2nd to vaginal bleeding Patient had IV iron. Outpatient CBC Qualifiers: Iron deficiency anemia type: chronic blood loss Qualified Code(s): D50.0 - Iron deficiency anemia secondary to blood loss (chronic) Oncology: Subj Interval history: Patient had no acute events overnight. She denies more vaginal bleeding. She would like to leave today AMA. - Constitutional Vitals: Vital Signs Temp Pulse Resp BP Pulse Ox 11/03/17 10:32 16 96 11/03/17 07:02 97.5 F L 73 16 130/77 96 11/03/17 04:48 98.0 F 69 14 111/76 97 11/03/17 04:05 16 97 11/03/17 00:50 98.1 F 81 22 108/73 11/03/17 00:44 98.1 F 81 108/73 96 11/02/17 23:33 18 98 11/02/17 23:06 97.8 F 76 125/82 11/02/17 21:34 98.3 F 78 22 113/77 11/02/17 21:19 98.0 F 24 119/71 11/02/17 18:43 98.3 F 80 16 150/80 98 11/02/17 15:55 16 99 11/02/17 15:04 97.5 F L 79 16 127/75 96 Intake and Output 11/02/17 11/03/17 11/03/17 23:59 07:59 15:59 Intake Total 1127 / 1127 323 / 323 360 / 360 Output Total 850 / 850 900 / 900 Balance 277 / 277 -577 / -577 360 / 360 Intake: IV Fluids 500 / 500 Heparin 25,000 UNIT/500 ML D5W 500 / 500 25,000 unit In 500 ml @ 14 UNIT /KG/HR 37.848 mls/hr IVC . [id number] Rx#:[id number] Oral 600 / 600 0 / 0 360 / 360 Blood Product 323 / 323 Rbcs Leuko Poor As-3 2nd Unit 323 / 323 [id number] Output: Urine 850 / 850 900 / 900 Other: Meal Dinner Breakfast Percent of Meal Consumed 80% 80% Weight 136.2 kg Patient Weight 11/03/17 23:59 Weight 136.2 kg General appearance: no acute distress - Respiratory Respiratory exam: Present: CTAB - Cardiovascular Cardiovascular exam: Present: RRR - GI/Abdominal GI/Abdominal exam: Present: normal bowel sounds, soft - Extremities Exam Extremities exam: Absent: pedal edema - Neurological Exam Neurological exam: Present: alert, oriented X3 - Psychiatric Psychiatric exam: Present: normal affect, normal mood Oncology: Obj Data - Labs CBC & Chem 7: 11/03/17 05:15 11/03/17 05:15 Labs: Laboratory Results - last 24 hr 11/02/17 11/02/17 11/02/17 15:01 16:48 17:27 WBC RBC Hgb 8.0 L Hct 26.0 L MCV MCH MCHC RDW Plt Count MPV Immature Gran % Seg Neutrophils % Lymphocytes % Monocytes % Eosinophils % Basophils % Neutrophils # Lymphocytes # Monocytes # Eosinophils # Basophils # PT INR Heparin Anti-Xa, Unfract 0.22 L Sodium Potassium Chloride Carbon Dioxide BUN Creatinine Est GFR ( Amer) Est GFR (Non-Af Amer) BUN/Creatinine Ratio Glucose Calculated Osmolality Calcium Blood Type O POSITIVE Antibody Screen NEGATIVE Crossmatch See Detail 11/02/17 11/03/17 11/03/17 22:40 05:15 05:15 WBC 9.5 RBC 3.00 L Hgb 8.2 L Hct 26.1 L MCV 87.0 MCH 27.3 L MCHC 31.4 L RDW 16.5 H Plt Count 179 MPV 10.2 Immature Gran % 2.0 Seg Neutrophils % 62.5 Lymphocytes % 26.3 Monocytes % 5.7 Eosinophils % 3.0 Basophils % 0.5 Neutrophils # 6.0 Lymphocytes # 2.5 Monocytes # 0.5 Eosinophils # 0.3 Basophils # 0.1 PT 12.7 H INR 1.1 Heparin Anti-Xa, Unfract 0.46 Sodium Potassium Chloride Carbon Dioxide BUN Creatinine Est GFR ( Amer) Est GFR (Non-Af Amer) BUN/Creatinine Ratio Glucose Calculated Osmolality Calcium Blood Type Antibody Screen Crossmatch 11/03/17 05:15 WBC RBC Hgb Hct MCV MCH MCHC RDW Plt Count MPV Immature Gran % Seg Neutrophils % Lymphocytes % Monocytes % Eosinophils % Basophils % Neutrophils # Lymphocytes # Monocytes # Eosinophils # Basophils # PT INR Heparin Anti-Xa, Unfract Sodium 140 Potassium 4.0 Chloride 108 H Carbon Dioxide 25 BUN 11 Creatinine 0.85 Est GFR ( Amer) > 60 Est GFR (Non-Af Amer) > 60 BUN/Creatinine Ratio 13 Glucose 99 Calculated Osmolality 289 Calcium 8.8 Blood Type Antibody Screen Crossmatch - ABG Interpretation ABG results: PT/INR, D-dimer PT 12.7 Seconds (9.4-12.1) H 11/03/17 05:15 Consult Discharge Plan - Plan Instructions: Warfarin (By mouth), Enoxaparin (Injection), Pulmonary Embolism ( DC) Referrals: Jayjay Lagunas [Other] - 11/05/17 10:30 am Abraham Pelletier DO [Primary Care Provider] - 11/11/17 1:00 pm Prescriptions: Enoxaparin [Lovenox] 140 mg SQ Q12HR 7 Days #14 syr Warfarin [Coumadin] 7.5 mg PO 1800 #14 tablet <Sharlene Franco - Last Filed: 11/04/17 18:20> Date of Encounter: 11/04/17 Oncology: Subj Interval history: I did not examine this patient today. Above plan was discussed with Romario Mann. I agree with the documented findings, disposition and treatment plan as described except to the extent set forth below. Oncology: Obj Data - Labs CBC & Chem 7: 11/03/17 05:15 11/03/17 05:15 - ABG Interpretation ABG results: PT/INR, D-dimer PT 12.7 Seconds (9.4-12.1) H 11/03/17 05:15
[2017-11-03] MEDS ORDERED: *HR* Warfarin 7.5 MG TABLET PO ONE (18:00)
== END 2017-11-03 12:16 | disposition left against medical advice (07) ==
LOC: 3ANU 15:33 → EMEROO 15:33 → SUATTDRO 23:02 → 3ANU 23:50
PROVIDERS: ADMIT Family Medicine; ATTEND Family Medicine

== ENCOUNTER 2018-11-04 12:00 | Inpatient (IN) ==
[2018-11-04] MEDS ORDERED: Ketorolac 15 MG/ML VIAL IVP ONE (12:12)
[2018-11-04] MEDS ORDERED: Ondansetron 4 MG/2 ML VIAL IVP ONE (12:12)
[2018-11-04 12:49] LABS: Bilirubin,Urine Small (Negative); Blood,Urine Large (Negative); Clarity,Urine Turbid (Clear); Color,Urine Dark Yellow (Yellow); Glucose,Urine (UA) Normal (Normal); Ketones,Urine Negative (Negative); Leukocyte Esterase,Urine Large (Negative); Nitrite,Urine Negative (Negative); PH,Urine 5.5 pH Units (5.0-8.0); Protein,Urine 30 mg/dL (Neg-Trace); Specific Gravity,Urine 1.022 (1.010-1.025); Urobilinogen,Urine Normal (Normal)
[2018-11-04 12:53] LABS: Bacteria,Urine Moderate per hpf (None-Few); Hyaline Casts,Urine None Seen per lpf (None-Few); RBC,Urine TNTC per hpf (0-3); Squamous Epithelial Cell,Urine Many per lpf (None-Few); WBC,Urine TNTC per hpf (0-3)
[2018-11-04 12:53] LABS: Basophils # 0.1 K/mcL (0.0-0.2); Basophils % 0.8 %; Eosinophils # 0.1 K/mcL (0.0-0.6); Eosinophils % 1.4 %; Hematocrit 39.6 % (35.3-44.9); Immature Granulocytes % 1.2 % (0-4); Lymphocytes # 1.8 K/mcL (0.6-4.6); Lymphocytes % 18.2 %; Mean Corpuscular HGB Conc 32.8 g/dL (31.6-35.5); Mean Corpuscular Hemoglobin 28.6 pg (28.0-33.3); Mean Platelet Volume 10.7 fL (9.4-12.4); Monocytes # 0.5 K/mcL (0.0-1.3); Monocytes % 4.8 %; Neutrophils # 7.2 K/mcL (1.6-8.9); Platelet Count 247 K/mcL (140-400); Red Blood Count 4.55 M/mcL (3.82-4.97); Red Cell Distribution Width 15.4 % (11.5-14.5); Segmented Neutrophils % 73.6 %; White Blood Count 9.8 K/mcL (4.3-11.1)
[2018-11-04 13:09] LABS: Alanine Aminotransferase 17 Units/L (7-52); Albumin 4.9 g/dL (3.5-5.7); Albumin/Globulin Ratio 1.6 (1.1-2.2); Alkaline Phosphatase 78 Units/L (34-104); Aspartate Amino Transferase 19 Units/L (13-39); BUN/Creatinine Ratio 8 (6-26); Bilirubin,Direct 0.2 mg/dL (0.0-0.2); Bilirubin,Total 1.2 mg/dL (0.3-1.0); Blood Urea Nitrogen 10 mg/dL (6-20); Calcium 10.1 mg/dL (8.6-10.3); Carbon Dioxide 26 mEq/L (23-29); Chloride 104 mEq/L (98-107); Globulin 3.1 g/dL (2.4-3.5); Glucose 109 mg/dL (70-105); Osmolality,Calculated 288 (280-300); Potassium 3.5 mEq/L (3.5-5.1); Sodium 139 mEq/L (136-145); eGFR For African Americans > 60 (> 60); eGFR For Non-African Americans 50 (> 60)
[2018-11-04 13:10] LABS: Transitional Epi Cells,Urine Few per hpf (None-Few)
[2018-11-04 13:11] LABS: Calcium Oxalate Crystals,Urine Present
[2018-11-04] MEDS ORDERED: cefTRIAXone 1,000 MG in Water for inj. (sterile) 10 ML IVP ONE (13:12)
[2018-11-04] MEDS ORDERED: Ondansetron 4 MG/2 ML VIAL IVP PRN (14:23)
[2018-11-04] MEDS ORDERED: Naloxone 0.4 MG/ML INJ IVP PRN (14:23)
[2018-11-04] MEDS ORDERED: Ketorolac 15 MG/ML VIAL IVP PRN (14:23)
[2018-11-04] MEDS: Furosemide 20 MG TABLET PO SCH (16:27)
[2018-11-04] MEDS: 0.9 % Sodium Chloride 1,000 ML IVC SCH (16:27)
[2018-11-04] MEDS: *HR* Enoxaparin 100 MG/ML SYRINGE SQ SCH (17:33)
[2018-11-05 02:32] LABS: Basophils # 0.1 K/mcL (0.0-0.2); Basophils % 0.5 %; Eosinophils # 0.1 K/mcL (0.0-0.6); Eosinophils % 1.1 %; Hematocrit 35.6 % (35.3-44.9); Immature Granulocytes % 0.7 % (0-4); Lymphocytes % 19.8 %; Mean Corpuscular HGB Conc 31.7 g/dL (31.6-35.5); Mean Corpuscular Hemoglobin 27.3 pg (28.0-33.3); Mean Platelet Volume 10.4 fL (9.4-12.4); Monocytes # 0.7 K/mcL (0.0-1.3); Monocytes % 7.2 %; Platelet Count 206 K/mcL (140-400); Red Blood Count 4.14 M/mcL (3.82-4.97); Red Cell Distribution Width 14.9 % (11.5-14.5); Segmented Neutrophils % 70.7 %
[2018-11-05 02:33] LABS: Hemoglobin 11.3 g/dL (11.5-15.4)
[2018-11-05 02:48] LABS: Calcium 8.9 mg/dL (8.6-10.3); Magnesium 2.4 mg/dL (1.6-2.6); Potassium 3.3 mEq/L (3.5-5.1)
[2018-11-05] MEDS: 0.9 % Sodium Chloride 1,000 ML IVC SCH (02:50)
[2018-11-05] MEDS: *HR* Enoxaparin 100 MG/ML SYRINGE SQ SCH (05:22)
[2018-11-05] MEDS ORDERED: Potassium Chloride 20 MEQ, Lidocaine 1% 2 ML in D5% in Water 250 ML IVPB ONE (07:54)
[2018-11-05] MEDS ORDERED: cefTRIAXone 1,000 MG in Water for inj. (sterile) 10 ML IVP SCH (09:00)
[2018-11-05] MEDS: Furosemide 20 MG TABLET PO SCH (09:05)
[2018-11-05 11:46] VITALS: BP 126/76
== END 2018-11-05 14:57 | disposition left against medical advice (07) | DRG 463 ==
LOC: 3ANU 12:00 → EMEROOARM 12:00 → 3ANU 15:48
PROVIDERS: ADMIT Student in an Organized Health Care Education/Training Program; ATTEND Student in an Organized Health Care Education/Training Program